=== PATIENT | male | born 1965 | race Caucasian/White ===

== ENCOUNTER → 2017-10-16 07:04 | Day surgery (SDC) | payer OTHER, SELFPAY ==
--- NOTE | 2017-10-16 | PATH_ITS ---
[facility] Accession Number: [id number] . 01 Material submitted: . PART A: POLYP ASCENDING COLON PART B: POLYP AT 35 . 02 Diagnosis: A. Biopsy Polyp Ascending Colon: Tubular adenoma involving all three biopsy fragments. . B. Biopsy Colon Polyp at 35 cm: Hyperplastic polyp. MRV/10/19/2017 . 02 Electronically signed: . Michael Smalls MD, Pathologist NPI- [id number] . 01 Gross description: . Received two formalin-filled containers, both labeled with the patient's name: . A. In a container labeled polyp, ascending colon, the specimen consists of three 0.1-0.3 cm portions of tissue, entirely submitted in cassette A. B. In a container labeled polyp at 35, the specimen consists of a 0.3 cm portion of tissue, entirely submitted in cassette B. ([id number]) /FRR . 02 Pathologist provided ICD-10: D12.2 . 02 CPT . 060424, [id number] Performed at: 01 [facility] [address], [place], [place] [id number] MD Prabhu Núñez MD Phone: [phone] Performed at: 02 [facility] [address] [place], [place] [id number] MD Americo Rodriguez MD Phone: [phone]
[2017-10-16 07:24] VITALS: BP 137/83; PULSE 65; RESP 16; TEMP 36.6; O2SAT 97; BMI 32.8
--- NOTE | 2017-10-16 07:41 | PM.HP.1 ---
History of Present Illness Date Patient Seen: 10/16/17 Time Patient Seen: 07:41 Chief complaint: [id number] COLONOSCOPY W/POSS BANDING Narrative: The patient is a gentleman who has intermittent blood per rectum and is here for colonoscopy and possible hemorrhoid banding Patient History Family & Social History Social History: household members spouse Meds Home Medications Medication Instructions Recorded Confirmed Type amoxicillin-pot clavulanate 875 mg PO BID #20 tab 04/11/17 10/16/17 Rx [Augmentin] neomycin-polymyxin B-dexameth 2 - 3 drp OP TID #5 ml 04/11/17 10/16/17 Rx Allergies Allergy/AdvReac Type Severity Reaction Status Date / Time No Known Drug Allergies Allergy Verified 10/16/17 07:16 Review of Systems Review of Systems All systems reviewed & are unremarkable except as noted in HPI and below Exam Vital Signs (past 8 hours): - 10/16/17 07:24 Temperature 97.9 F Pulse Rate 65 Respiratory Rate 16 Blood Pressure 137/83 H Pulse Oximetry 97 Oxygen Delivery Method Room Air Narrative Exam Narrative: Overweight gentleman in no apparent distress. Eyes are nonicteric. Lungs are clear to auscultation without rales or rhonchi. Heart regular rate and rhythm without murmur gallop. Abdomen is protuberant soft nontender without mass. Patient is alert and oriented x3. Assessment & Plan Plan: Assessment/Plan Narrative: Patient with intermittent rectal bleeding for colonoscopy and possible hemorrhoid banding. I have discussed the procedure and the rationale with the patient including risks of bleeding, perforation which would necessitate a major operation, failure to find remove all lesions and the potential to tattoo. They appeared to understand and wished to proceed.
--- NOTE | 2017-10-16 07:43 | PM.PREOP ---
Pre-operative Note Interval Note Pre-op Check: Yes History & Physical exam performed today by Physician Changes: No ASA Class (for procedural sedation): I
[2017-10-16] MEDS: SODIUM CHLORIDE 0.9% 1,000 ML 200 ML IV (07:45)
[2017-10-16] MEDS: MIDAZOLAM 5 MG/5 ML VIAL IV (08:11)
[2017-10-16] MEDS: fentaNYL 250 MCG/5 ML INJ IV (08:12)
[2017-10-16 08:23] VITALS: BP 123/82; PULSE 81; RESP 18; TEMP 37.2; O2SAT 96
--- NOTE | 2017-10-16 08:27 | P.OP.ENDO_ITS ---
Operative Date/Time/Diagnoses Date of procedure: 10/16/17 Time of procedure: 08:22 Pre-op diagnosis: Rectal bleeding. Screening exam at age 52. No prior colonoscopy. Post-op diagnosis: same (Ascending colon polyp near the flexure. Small hemorrhoids near the verge but not really amenable to banding.) Procedure & Clinicians Study performed: Colonoscopy with cold biopsy Same procedure as scheduled: Yes Indications: Rectal bleeding. Age 52. Surgeon: Stuart Mcmillan Procedure Notes SCOAP/Timeout: Performed Procedure in detail: The patient was placed in the left lateral decubitus position and underwent IV sedation directed by the surgeon consisting of fentanyl and Versed. Digital exam was unremarkable. Prostate was normal size. No masses felt. I could not feel the anterior part of the gland well.. The scope was inserted and advanced through the rectum into the sigmoid, descending , transverse, and ascending colon. No lesions were seen. The cecum was reached identified by the ileocecal valve and the appendiceal opening. The ileocecal valve was successfully cannulated. The terminal ileum was normal in appearance. The scope was gradually brought out. Polyps were found at the ascending colon near the flexure and at 35 cm. The ascending colon polyp was subcentimeter bit larger than the other which was quite small. The scope ultimately was retroflexed in the rectum. The appearance was remarkable for very small hemorrhoids with a little excoriation. I did not feel these were amenable to banding as they were right inside the anal verge and appeared to be of little consequence.. The scope was removed and the patient tolerated the procedure well Scope withdrawal time: 14 min Sedation minutes: 28 Findings: internal hemorrhoids (Very small right near the anal verge) and polyp (Ascending colon and 35 cm from the anal verge) Specimen(s): other (Polyps) Complications: none Recommendations: Colonscopy in 5 years Follow up: as needed Disposition: PACU
[2017-10-16 08:28] VITALS: BP 126/72; PULSE 70; RESP 16; TEMP 37.2; O2SAT 96
[2017-10-16 08:33] VITALS: BP 121/82; PULSE 73; RESP 20; TEMP 36.8; O2SAT 70
[2017-10-16 08:41] VITALS: BP 130/86; PULSE 68; RESP 16; TEMP 36.8; O2SAT 94
[2017-10-16 08:57] VITALS: BP 121/86; PULSE 62; RESP 18; TEMP 36.6; O2SAT 98
== END | disposition home or self-care (01) ==
PROVIDERS: PCP Internal Medicine; Visit Provider Specialist
PROC: 0DJD8ZZ Inspection of Lower Intestinal Tract, Via Natural or Artificial Opening Endoscopic (ICD-10-PCS; CPT 45378; principal; 2017-10-16 07:45)
DX: D12.2 Benign neoplasm of ascending colon (principal); K64.8 Other hemorrhoids
CPT/HCPCS: 45380; 99152; 99153; J2250; J3010

== ENCOUNTER → 2019-04-21 09:47 | Outpatient (CLI) | payer OTHER, SELFPAY ==
--- NOTE | 2019-04-21 | DI.RAD.S_ITS ---
PROCEDURE: XR THORACIC SPINE 3V INDICATIONS: LOW BACK PAIN TECHNIQUE: 3 views of the thoracic spine were acquired. COMPARISON: [facility], , XR LUMBAR SPINE 2-3V, 04/21/2019, 9:49. [facility], , THORACIC SPINE 3 VIEWS, 01/08/2015, 12:32. FINDINGS: Bones: Mild anterior wedging of the T12 vertebral body. Remaining vertebral body heights appear preserved Soft tissues: No paravertebral stripe thickening. IMPRESSION: Mild anterior wedging of the T12 vertebral body, new since 2014 however technically still age-indeterminate in the absence of more recent prior studies. Correlation with point tenderness and if necessary, dedicated MRI could be performed to assess for acute marrow edema. Findings were personally discussed by telephone with Dr. Piper on 04/21/19 Dictated by: Luis Morales M.D. on 04/21/2019 at 13:10 Approved by: Luis Morales M.D. on 04/21/2019 at 13:15
--- NOTE | 2019-04-21 | DI.RAD.S_ITS ---
PROCEDURE: XR LUMBAR SPINE 2-3V INDICATIONS: LOW BACK PAIN TECHNIQUE: 3 views of the lumbar spine were acquired. COMPARISON: [facility], , THORACIC SPINE 3 VIEWS, 01/08/2015, 12:32. [facility], , CHEST 2 VIEW, 07/24/2017, 15:40. [facility], , XR THORACIC SPINE 3V, 04/21/2019, 9:49. [facility], , L-SPINE 2-3 VIEWS, 01/08/2015, 12:32. FINDINGS: Bones: Mild anterior wedging of the T12 vertebral body. Lower lumbar spondylosis and diffuse facet arthropathy. Soft tissues: Overlying bowel gas pattern is normal. No suspicious soft tissue calcifications. IMPRESSION: Mild anterior wedging of the T12 vertebral body, new since although technically still age indeterminate in the absence of more recent prior studies. Recommend clinical correlation Dictated by: Luis Morales M.D. on 04/21/2019 at 13:08 Approved by: Luis Morales M.D. on 04/21/2019 at 13:10
== END ==
PROVIDERS: PCP Internal Medicine; Visit Provider Internal Medicine
DX: M54.5 Low back pain (principal); M48.54XA Collapsed vertebra, not elsewhere classified, thoracic region, initial encounter for fracture; M47.816 Spondylosis without myelopathy or radiculopathy, lumbar region
CPT/HCPCS: 72072; 72100

== ENCOUNTER 2020-04-26 12:15 | Outpatient (RCR) | payer OTHER, SELFPAY ==
--- NOTE | 2020-02-16 16:11 | PT.OPPOC ---
Physical, Occupational & Speech Therapy At [facility] Current Diagnoses Wedge compression fracture of T11-T12 vertebra, initial encounter for closed fracture (02/16/20) Visit Care Team Role Provider Type Sahil Piper MD Attending Provider Physician Primary Care Provider Referring Provider Specialty: Internal Medicine Address: [address] [place] [address], [facility] Email: [email or web address] Plan Of Care PT-OP-T Assessment and Plan Start: 02/15/20 07:21 Freq: Status: Active Protocol: Document 02/16/20 12:55 MB (Rec: 02/16/20 16:09 MB [id number]) Physical Therapy Assessment Rehab Potential Rehabilitation Potential Good Evaluation Complexity Number of Personal Factors/Comorbidities 1-2 Number of Body Systems Impaired 1-2 Clinical Presentation at Evaluation Stable Impairments Impairments Activity Tolerance,Balance, Functional Activities, Functional Mobility,Integument ,Pain,Posture,ROM,Soft Tissue Mobility,Strength Goals 4 Senior Living Goal (LTG) Pt will report an overall 75% improvement in pain to improve quality of life by 04/17/2020. LTG Duration 8 weeks 3 Core Cleaner Goal (LTG) Pt will present with improved B shoulder flexion and left hip flexion and abduction strength to 5/5 to improve functional strength by 2020. LTG Duration 8 weeks 2 Senior Living Goal (LTG) Pt will perform progressive HEP with I including postural, strengthening, flexibility, body mechanics, ergonomic, breathing and relaxation exercises to improve overall posture, pain and functional strength by 04/17/2020. LTG Duration 8 weeks 1 Senior Living Goal (LTG) Pt will present with improved Oswestry score to reflect no more than 20% impairment to improve functional activities by 04/17/2020. LTG Duration 8 weeks Assessment Summary Assessment Pt is a 54 y/o male presenting with compression fracture that is likely greater than 1 year old. 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 He is changing work shifts and occ works up to 7 days a week. He commutes 1 hour to work and 1 hour from work. Overall, his life has become more sedentary since his injury d/t the resulting pain, greatest with standing and walking greater than 10 minutes. Pt presents with postural changes, fascial changes, pelvic obliquities and weakness. He will benefit from PT for manual work, breathing exercises to improve rib and thoracic motility, other exercises including postural, flexibility and strengthening exercises. Barriers include work requirements and sedentary lifestyle. Pt is also a stomach sleeper and this may affect his cervical spine. Pt is very motivated to get better and would like to return to hiking and carrying a backpack. Physical Therapy Plan Frequency and Duration Frequency of Treatment 2x/Week Duration of Treatment 8 weeks Plan of Care Start Date 02/16/20 Plan of Care End Date 04/17/20 Therapeutic Interventions Therapeutic Interventions Balance Training,Canalithic Repositioning,Coordination Training,Home Exercise Program ,Joint Mobilizations,Manual Therapy,Neuromuscular Re- education,Patient/Caregiver Education,Self-Care/Home Management,Sensory Integration ,Soft Tissue Mobilization, Taping,Therapeutic Activities, Therapeutic Exercises Modalities Cold Pack/Ice Massage,Electric Stimulation,Hot Packs, Ultrasound Next Visit Focus/Plan Next Note Type Treatment Note Next Visit Plan Counterstrain and/or relaxation exercises Plan of Care Dates Plan of Care Start Date 02/16/20 Plan of Care End Date 04/17/20 Electronically Signed by: Karla Francios, PT 02/16/20 0041 Please Sign and Return: I have reviewed this Plan of Care and certify that the skilled therapy services above are required to meet the patient?s needs. Physician Signature Date Printed Name and Credentials Clinical Instructor Signature Printed Name and Credentials
--- NOTE | 2020-02-16 16:11 | PT.OIE ---
Current Diagnoses Wedge compression fracture of T11-T12 vertebra, initial encounter for closed fracture (02/16/20) Past Medical History (Last Updated 01/08/18 @ 09:45 by Gayle Collier, RN) Lipoma of anterior chest wall No significant past medical history Subcutaneous mass Past Surgical History (Last Updated 01/08/18 @ 09:47 by Gayle Collier, RN) History of colonoscopy Status post excision of lipoma Visit Care Team Role Provider Type Sahil Piper MD Attending Provider Physician Primary Care Provider Referring Provider Specialty: Internal Medicine Address: [address] [place] [address] Email: [email or web address] Physical Therapy Initial Evaluation PT-OP-A Visit Information Start: 02/15/20 07:21 Freq: Status: Active Protocol: Document 02/16/20 12:55 MB (Rec: 02/16/20 13:29 MB [id number]) Out-Patient Physical Therapy Visit Information Visit Information Visit Type Initial Evaluation Visit Note [employer], PT only Visit Start Time 12:55 Visit Stop Time 13:55 Total Visit Minutes 60 Visit Number 1 Evaluation Information Evaluation Date 02/16/20 PT-OP-B Current Condition Start: 02/15/20 07:21 Freq: Status: Active Protocol: Document 02/16/20 12:55 MB (Rec: 02/16/20 13:29 MB [id number]) Current Condition History of Current Condition Onset Date 02/11/2019 Current Complaints Inconsistent thoracic pain History of Current Condition On 02/11/2019, pt's right foot got stuck in a hole and he fell hard on his tailbone and back. 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 He had severe tailbone pain and back pain after the injury. He thinks he was in shock for a few days. He did not miss work . He finally went to the doctor in March and was found to have a T12 compression fracture. He no longer has tailbone pain but reports 8-10/10 lower thoracic -upper lumbar pain with being up on his feet standing or walking for 10 minutes. Pt reports a shooting pain. He also has dull and nausea pain. Pt drives 1 hour to work and 1 hour back from work 40-70 hours a week. Pt is concerned about weight gain. He works 3rd shift. He does not have pain with driving. He will be changing to 2nd shift. Pt states that he doesn't sleep well. He sleeps on his stomach. He has pain if he lies down more than 6-7 hours a night. He slept on a hard mattress on his back for a few weeks when he had a lot of pain. He also got into hip flexor relaxation position. 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 He does not think this is related to his back and thinks it is related to overuse. Pt has multiple cuts from work . Pt has history of headaches. Prior Treatments and Tests X-ray lumbar spine 04/21/2019: mild anterior wedging T12 new since 01/08/15 and age indeterminate and lumbar spondylosis and diffuse facet arthropathy Treatment Goals Patient/Caregiver Goals To lose weight and get back to exercising, walking and hiking. PT-OP-C Subjective Start: 02/15/20 07:21 Freq: Status: Active Protocol: Document 02/16/20 12:55 MB (Rec: 02/16/20 13:29 MB [id number]) OP-PT Subjective Patient Comments Patient Comments See history of current condition. Patient Questionnaires Oswestry Low Back Index Oswestry Score 23 Oswestry Impairment 40 to 59% Impaired (Score 40- 59) PT-OP-J Posture/Palpation/Skin Start: 02/15/20 07:21 Freq: Status: Active Protocol: Document 02/16/20 12:55 MB (Rec: 02/16/20 16:09 MB [id number]) Posture Evaluation Comments Posture Comments Standing posture: increased body mass, decreased cervical lordosis, Dowager's hump, some lipoma areas chest, left arm, back noted, increased lumbar lordosis, anterior tilt pelvis , pelvic obliquities with right iliac crest higher than the left and pt reporting tenderness to touch over left iliac crest that might be related to old lipoma removal. Tension and pain over left T12 vertebra and ribs compared to the right, pt wears Randall boots and has increased resting toe extension greater on the right foot and increased right Naya angle compared to the left. Pt reports unstable ankles, greater on the left and frequent rolling of his ankles. Range of spine with movements: decreased SB B with most movement at shoulders and decreased movement T12 area, forward flexion decreases with repetition and pt reports that he prefers extension positions. Sitting thoracic rotation with left rotation 25 % less than the right. PT-OP-K Range of Motion Start: 02/15/20 07:21 Freq: Status: Active Protocol: Document 02/16/20 12:55 MB (Rec: 02/16/20 16:09 MB [id number]) Shoulder Goniometric Range of Motion Shoulder B Shoulder ROM WFL Yes Testing Position Sitting Elbow/Forearm Range of Motion Elbow/Forearm B Elbow/Forearm ROM WFL Yes ROM Testing Position Sitting Comments Hypermobility into extension left elbow PT-OP-M Strength Start: 02/15/20 07:21 Freq: Status: Active Protocol: Document 02/16/20 12:55 MB (Rec: 02/16/20 16:09 MB [id number]) Shoulder Strength Shoulder Manual Muscle Testing Left Flexion 4 Good Abduction (C5) 5 Normal External Rotation 4 Good Internal Rotation 4 Good Right Flexion 4 Good Abduction (C5) 5 Normal External Rotation 5 Normal Internal Rotation 5 Normal Elbow/Forearm Strength Elbow and Forearm Manual Muscle Testing Left Flexion (C6) 5 Normal Extension (C7) 5 Normal Pronation 5 Normal Supination 5 Normal Right Flexion (C6) 5 Normal Extension (C7) 5 Normal Pronation 5 Normal Supination 5 Normal Hip Strength Hip Manual Muscle Testing Left Flexion (L2) 4 Good Abduction 4 Good Right Flexion (L2) 5 Normal Abduction 5 Normal Knee Strength Knee Manual Muscle Testing B Extension (L3) 5 Normal PT-OP-Q Treatments Start: 02/15/20 07:21 Freq: Status: Active Protocol: Document 02/16/20 12:55 MB (Rec: 02/16/20 16:10 MB [id number]) Self-Care/Home Management Treatment Education Other Education Possible benefits of Spinomed brace in setting of compresssion fracture and postural changes, benefits of Counterstrain and provided education handout, to set phone timer so that he gets up every 30 minutes at work to perform gentle standing extension with 5 rib breaths. PT-OP-T Assessment and Plan Start: 02/15/20 07:21 Freq: Status: Active Protocol: Document 02/16/20 12:55 MB (Rec: 02/16/20 16:09 MB [id number]) Physical Therapy Assessment Rehab Potential Rehabilitation Potential Good Evaluation Complexity Number of Personal Factors/Comorbidities 1-2 Number of Body Systems Impaired 1-2 Clinical Presentation at Evaluation Stable Impairments Impairments Activity Tolerance,Balance, Functional Activities, Functional Mobility,Integument ,Pain,Posture,ROM,Soft Tissue Mobility,Strength Goals 4 Half-Way Goal (LTG) Pt will report an overall 75% improvement in pain to improve quality of life by 04/17/2020. LTG Duration 8 weeks 3 Half-Way Goal (LTG) Pt will present with improved B shoulder flexion and left hip flexion and abduction strength to 5/5 to improve functional strength by 2020. LTG Duration 8 weeks 2 Marine Engineering Technicians Goal (LTG) Pt will perform progressive HEP with I including postural, strengthening, flexibility, body mechanics, ergonomic, breathing and relaxation exercises to improve overall posture, pain and functional strength by 04/17/2020. LTG Duration 8 weeks 1 Marine Engineering Technicians Goal (LTG) Pt will present with improved Oswestry score to reflect no more than 20% impairment to improve functional activities by 04/17/2020. LTG Duration 8 weeks Assessment Summary Assessment Pt is a 54 y/o male presenting with compression fracture that is likely greater than 1 year old. 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 He is changing work shifts and occ works up to 7 days a week. He commutes 1 hour to work and 1 hour from work. Overall, his life has become more sedentary since his injury d/t the resulting pain, greatest with standing and walking greater than 10 minutes. Pt presents with postural changes, fascial changes, pelvic obliquities and weakness. He will benefit from PT for manual work, breathing exercises to improve rib and thoracic motility, other exercises including postural, flexibility and strengthening exercises. Barriers include work requirements and sedentary lifestyle. Pt is also a stomach sleeper and this may affect his cervical spine. Pt is very motivated to get better and would like to return to hiking and carrying a backpack. Physical Therapy Plan Frequency and Duration Frequency of Treatment 2x/Week Duration of Treatment 8 weeks Plan of Care Start Date 02/16/20 Plan of Care End Date 04/17/20 Therapeutic Interventions Therapeutic Interventions Balance Training,Canalithic Repositioning,Coordination Training,Home Exercise Program ,Joint Mobilizations,Manual Therapy,Neuromuscular Re- education,Patient/Caregiver Education,Self-Care/Home Management,Sensory Integration ,Soft Tissue Mobilization, Taping,Therapeutic Activities, Therapeutic Exercises Modalities Cold Pack/Ice Massage,Electric Stimulation,Hot Packs, Ultrasound Next Visit Focus/Plan Next Note Type Treatment Note Next Visit Plan Counterstrain and/or relaxation exercises
--- NOTE | 2020-02-17 15:47 | PT.OTN ---
Current Diagnoses Wedge compression fracture of T11-T12 vertebra, initial encounter for closed fracture (02/17/20) Physical Therapy Treatment Note PT-OP-A Visit Information Start: 02/15/20 07:21 Freq: Status: Active Protocol: Document 02/17/20 13:45 MB (Rec: 02/17/20 14:34 MB [id number]) Out-Patient Physical Therapy Visit Information Visit Information Visit Type Treatment Note Visit Start Time 13:45 Visit Stop Time 14:30 Total Visit Minutes 45 Visit Number 2 PT-OP-B Current Condition Start: 02/15/20 07:21 Freq: Status: Active Protocol: Document 02/16/20 12:55 MB (Rec: 02/16/20 13:29 MB [id number]) Current Condition History of Current Condition Onset Date 02/11/2019 Current Complaints Inconsistent thoracic pain History of Current Condition On 02/11/2019, pt's right foot got stuck in a hole and he fell hard on his tailbone and back. He works in a fish [email or web address] and it has a a round bottom. 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 He had severe tailbone pain and back pain after the injury. He thinks he was in shock for a few days. He did not miss work . He finally went to the doctor in March and was found to have a T12 compression fracture. He no longer has tailbone pain but reports 8-10/10 lower thoracic -upper lumbar pain with being up on his feet standing or walking for 10 minutes. Pt reports a shooting pain. He also has dull and nausea pain. Pt drives 1 hour to work and 1 hour back from work 40-70 hours a week. Pt is concerned about weight gain. He works 3rd shift. He does not have pain with driving. He will be changing to 2nd shift. Pt states that he doesn't sleep well. He sleeps on his stomach. He has pain if he lies down more than 6-7 hours a night. He slept on a hard mattress on his back for a few weeks when he had a lot of pain. He also got into hip flexor relaxation position. 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 He does not think this is related to his back and thinks it is related to overuse. Pt has multiple cuts from work . Pt has history of headaches. Prior Treatments and Tests X-ray lumbar spine 04/21/2019: mild anterior wedging T12 new since 01/08/15 and age indeterminate and lumbar spondylosis and diffuse facet arthropathy Treatment Goals Patient/Caregiver Goals To lose weight and get back to exercising, walking and hiking. PT-OP-C Subjective Start: 02/15/20 07:21 Freq: Status: Active Protocol: Document 02/17/20 13:45 MB (Rec: 02/17/20 14:34 MB [id number]) OP-PT Subjective Patient Comments Patient Comments Where do you start when you have this? PT-OP-J Posture/Palpation/Skin Start: 02/15/20 07:21 Freq: Status: Active Protocol: Document 02/16/20 12:55 MB (Rec: 02/16/20 16:09 MB [id number]) Posture Evaluation Comments Posture Comments Standing posture: increased body mass, decreased cervical lordosis, Dowager's hump, some lipoma areas chest, left arm, back noted, increased lumbar lordosis, anterior tilt pelvis , pelvic obliquities with right iliac crest higher than the left and pt reporting tenderness to touch over left iliac crest that might be related to old lipoma removal. Tension and pain over left T12 vertebra and ribs compared to the right, pt wears Randall boots and has increased resting toe extension greater on the right foot and increased right Naya angle compared to the left. Pt reports unstable ankles, greater on the left and frequent rolling of his ankles. Range of spine with movements: decreased SB B with most movement at shoulders and decreased movement T12 area, forward flexion decreases with repetition and pt reports that he prefers extension positions. Sitting thoracic rotation with left rotation 25 % less than the right. PT-OP-K Range of Motion Start: 02/15/20 07:21 Freq: Status: Active Protocol: Document 02/16/20 12:55 MB (Rec: 02/16/20 16:09 MB [id number]) Shoulder Goniometric Range of Motion Shoulder B Shoulder ROM WFL Yes Testing Position Sitting Elbow/Forearm Range of Motion Elbow/Forearm B Elbow/Forearm ROM WFL Yes ROM Testing Position Sitting Comments Hypermobility into extension left elbow PT-OP-M Strength Start: 02/15/20 07:21 Freq: Status: Active Protocol: Document 02/16/20 12:55 MB (Rec: 02/16/20 16:09 MB [id number]) Shoulder Strength Shoulder Manual Muscle Testing Left Flexion 4 Good Abduction (C5) 5 Normal External Rotation 4 Good Internal Rotation 4 Good Right Flexion 4 Good Abduction (C5) 5 Normal External Rotation 5 Normal Internal Rotation 5 Normal Elbow/Forearm Strength Elbow and Forearm Manual Muscle Testing Left Flexion (C6) 5 Normal Extension (C7) 5 Normal Pronation 5 Normal Supination 5 Normal Right Flexion (C6) 5 Normal Extension (C7) 5 Normal Pronation 5 Normal Supination 5 Normal Hip Strength Hip Manual Muscle Testing Left Flexion (L2) 4 Good Abduction 4 Good Right Flexion (L2) 5 Normal Abduction 5 Normal Knee Strength Knee Manual Muscle Testing B Extension (L3) 5 Normal PT-OP-Q Treatments Start: 02/15/20 07:21 Freq: Status: Active Protocol: Document 02/17/20 13:45 MB (Rec: 02/17/20 14:34 MB [id number]) Therapeutic Exercises Supine Exercises Diaphragm breathing Comments 5 reps slowly with legs up on therapy ball and band holding legs from falli Manual Therapy Treatment Other Other Manual Treatments Pt agrees to Counterstrain to assess and treat fascial tension and pt presents with tension in the following fascial systems: right trigeminal, right anterior LE somatic, right visceral and costocartilage. When PT starts to treat the most tight area, the right trigeminal fascia supraorbital area, pt grimaces and talks about history of migraines with retro-orbital HAs and also reports history of falls, hitting his right maxilla and ongoing intermittent tooth pain when has pain anywhere else in body . PT moves off the face and performs suboccipital release and very gentle superficial fascia upper diaphragm area positional release and pt reports feeling better. Self-Care/Home Management Treatment Education Other Education Benefits of therapy ball for sitting and positioning with legs up, to consider purchasing 55 cm ball and clinic can inflate it, progression to leaning over the ball, need for head and neck support when lying in hook lying, importance of breathing, benefits of using the band that PT gives him to tie legs together to relax them when up. PT-OP-T Assessment and Plan Start: 02/15/20 07:21 Freq: Status: Active Protocol: Document 02/17/20 13:45 MB (Rec: 02/17/20 14:34 MB [id number]) Physical Therapy Assessment Rehab Potential Rehabilitation Potential Good Evaluation Complexity Number of Personal Factors/Comorbidities 1-2 Number of Body Systems Impaired 1-2 Clinical Presentation at Evaluation Stable Impairments Impairments Activity Tolerance,Balance, Functional Activities, Functional Mobility,Integument ,Pain,Posture,ROM,Soft Tissue Mobility,Strength Goals 4 Compressor Repairer Goal (LTG) Pt will report an overall 75% improvement in pain to improve quality of life by 04/17/2020. LTG Duration 8 weeks 3 Residential Goal (LTG) Pt will present with improved B shoulder flexion and left hip flexion and abduction strength to 5/5 to improve functional strength by 2020. LTG Duration 8 weeks 2 Residential Goal (LTG) Pt will perform progressive HEP with I including postural, strengthening, flexibility, body mechanics, ergonomic, breathing and relaxation exercises to improve overall posture, pain and functional strength by 04/17/2020. LTG Duration 8 weeks 1 Residential Goal (LTG) Pt will present with improved Oswestry score to reflect no more than 20% impairment to improve functional activities by 04/17/2020. LTG Duration 8 weeks Assessment Summary Assessment Initiated positioning and Counterstrain today and pt is very symptomatic to gentle palpation and touch to his face. His right frontal and maxilla areas are very tight compared to the left. Pt reports history of facial trauma, migraines and tooth pain. He reports increased salivation with PT palpating right maxilla area for trigeminal fascial point and these may be a trigeminal response. Con't gentle progression of exercises, positioning and manual work. Pt does tolerate hook lying with legs on 55 cm ball today for manual work with head and neck supported. Physical Therapy Plan Frequency and Duration Frequency of Treatment 2x/Week Duration of Treatment 8 weeks Plan of Care Start Date 02/16/20 Plan of Care End Date 04/17/20 Therapeutic Interventions Therapeutic Interventions Balance Training,Canalithic Repositioning,Coordination Training,Home Exercise Program ,Joint Mobilizations,Manual Therapy,Neuromuscular Re- education,Patient/Caregiver Education,Self-Care/Home Management,Sensory Integration ,Soft Tissue Mobilization, Taping,Therapeutic Activities, Therapeutic Exercises Modalities Cold Pack/Ice Massage,Electric Stimulation,Hot Packs, Ultrasound Next Visit Focus/Plan Next Note Type Treatment Note Next Visit Plan Progress Counterstrain and/or relaxation exercises including over the ball
--- NOTE | 2020-02-21 13:56 | PT.OTN ---
Current Diagnoses Wedge compression fracture of T11-T12 vertebra, initial encounter for closed fracture (02/21/20) Physical Therapy Treatment Note PT-OP-A Visit Information Start: 02/15/20 07:21 Freq: Status: Active Protocol: Document 02/21/20 13:02 MB (Rec: 02/21/20 13:56 MB [id number]) Out-Patient Physical Therapy Visit Information Visit Information Visit Type Treatment Note Visit Start Time 13:02 Visit Stop Time 13:45 Total Visit Minutes 43 Visit Number 3 PT-OP-B Current Condition Start: 02/15/20 07:21 Freq: Status: Active Protocol: Document 02/16/20 12:55 MB (Rec: 02/16/20 13:29 MB [id number]) Current Condition History of Current Condition Onset Date 02/11/2019 Current Complaints Inconsistent thoracic pain History of Current Condition On 02/11/2019, pt's right foot got stuck in a hole and he fell hard on his tailbone and back. 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 He had severe tailbone pain and back pain after the injury. He thinks he was in shock for a few days. He did not miss work . He finally went to the doctor in March and was found to have a T12 compression fracture. He no longer has tailbone pain but reports 8-10/10 lower thoracic -upper lumbar pain with being up on his feet standing or walking for 10 minutes. Pt reports a shooting pain. He also has dull and nausea pain. Pt drives 1 hour to work and 1 hour back from work 40-70 hours a week. Pt is concerned about weight gain. He works 3rd shift. He does not have pain with driving. He will be changing to 2nd shift. Pt states that he doesn't sleep well. He sleeps on his stomach. He has pain if he lies down more than 6-7 hours a night. He slept on a hard mattress on his back for a few weeks when he had a lot of pain. He also got into hip flexor relaxation position. 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 He does not think this is related to his back and thinks it is related to overuse. Pt has multiple cuts from work . Pt has history of headaches. Prior Treatments and Tests X-ray lumbar spine 04/21/2019: mild anterior wedging T12 new since 01/08/15 and age indeterminate and lumbar spondylosis and diffuse facet arthropathy Treatment Goals Patient/Caregiver Goals To lose weight and get back to exercising, walking and hiking. PT-OP-C Subjective Start: 02/15/20 07:21 Freq: Status: Active Protocol: Document 02/21/20 13:02 MB (Rec: 02/21/20 13:56 MB [id number]) OP-PT Subjective Patient Comments Patient Comments I felt wiped out after treatment. I felt like I had a six month setback for three days and then I felt better. Pt had a few moments of finger tip and toe numbness left fingers. PT-OP-J Posture/Palpation/Skin Start: 02/15/20 07:21 Freq: Status: Active Protocol: Document 02/16/20 12:55 MB (Rec: 02/16/20 16:09 MB [id number]) Posture Evaluation Comments Posture Comments Standing posture: increased body mass, decreased cervical lordosis, Dowager's hump, some lipoma areas chest, left arm, back noted, increased lumbar lordosis, anterior tilt pelvis , pelvic obliquities with right iliac crest higher than the left and pt reporting tenderness to touch over left iliac crest that might be related to old lipoma removal. Tension and pain over left T12 vertebra and ribs compared to the right, pt wears Randall boots and has increased resting toe extension greater on the right foot and increased right Naya angle compared to the left. Pt reports unstable ankles, greater on the left and frequent rolling of his ankles. Range of spine with movements: decreased SB B with most movement at shoulders and decreased movement T12 area, forward flexion decreases with repetition and pt reports that he prefers extension positions. Sitting thoracic rotation with left rotation 25 % less than the right. PT-OP-K Range of Motion Start: 02/15/20 07:21 Freq: Status: Active Protocol: Document 02/16/20 12:55 MB (Rec: 02/16/20 16:09 MB [id number]) Shoulder Goniometric Range of Motion Shoulder B Shoulder ROM WFL Yes Testing Position Sitting Elbow/Forearm Range of Motion Elbow/Forearm B Elbow/Forearm ROM WFL Yes ROM Testing Position Sitting Comments Hypermobility into extension left elbow PT-OP-M Strength Start: 02/15/20 07:21 Freq: Status: Active Protocol: Document 02/16/20 12:55 MB (Rec: 02/16/20 16:09 MB [id number]) Shoulder Strength Shoulder Manual Muscle Testing Left Flexion 4 Good Abduction (C5) 5 Normal External Rotation 4 Good Internal Rotation 4 Good Right Flexion 4 Good Abduction (C5) 5 Normal External Rotation 5 Normal Internal Rotation 5 Normal Elbow/Forearm Strength Elbow and Forearm Manual Muscle Testing Left Flexion (C6) 5 Normal Extension (C7) 5 Normal Pronation 5 Normal Supination 5 Normal Right Flexion (C6) 5 Normal Extension (C7) 5 Normal Pronation 5 Normal Supination 5 Normal Hip Strength Hip Manual Muscle Testing Left Flexion (L2) 4 Good Abduction 4 Good Right Flexion (L2) 5 Normal Abduction 5 Normal Knee Strength Knee Manual Muscle Testing B Extension (L3) 5 Normal PT-OP-Q Treatments Start: 02/15/20 07:21 Freq: Status: Active Protocol: Document 02/21/20 13:02 MB (Rec: 02/21/20 13:56 MB [id number]) Gym Equipment Therapeutic Ball Hip flexor relaxation Exercise Details Progression Ball Size/Color 65 cm ball, green, feet on wall Body Position Hooklying Comments Resting position and this position for starting exercises: diaphragm breathing , abdominal drawing in, B shoulder flexion with hiking stick with abdominal drawing in, gentle lumbar rotation, lumbar rotation with legs on ball to initiate log rolling to right and then sitting with back against the wall before coming to standing PT-OP-T Assessment and Plan Start: 02/15/20 07:21 Freq: Status: Active Protocol: Document 02/21/20 13:02 MB (Rec: 02/21/20 13:56 MB [id number]) Physical Therapy Assessment Rehab Potential Rehabilitation Potential Good Evaluation Complexity Number of Personal Factors/Comorbidities 1-2 Number of Body Systems Impaired 1-2 Clinical Presentation at Evaluation Stable Impairments Impairments Activity Tolerance,Balance, Functional Activities, Functional Mobility,Integument ,Pain,Posture,ROM,Soft Tissue Mobility,Strength Goals 4 Atg Architect Goal (LTG) Pt will report an overall 75% improvement in pain to improve quality of life by 04/17/2020. LTG Duration 8 weeks 3 Atg Architect Goal (LTG) Pt will present with improved B shoulder flexion and left hip flexion and abduction strength to 5/5 to improve functional strength by 2020. LTG Duration 8 weeks 2 Usp Goal (LTG) Pt will perform progressive HEP with I including postural, strengthening, flexibility, body mechanics, ergonomic, breathing and relaxation exercises to improve overall posture, pain and functional strength by 04/17/2020. LTG Duration 8 weeks 1 Atg Architect Goal (LTG) Pt will present with improved Oswestry score to reflect no more than 20% impairment to improve functional activities by 04/17/2020. LTG Duration 8 weeks Assessment Summary Assessment Pt likes 65 cm ball better for legs up on it for relaxation and progressive exercises and so will get one for home. Progressed hook lying exercises with legs up on ball and ball against the wall. Con't progression and work back to Counterstrain in the future. His trigeminal nerve reaction to palpation last treatment note provoked old migraine-type symptoms. Physical Therapy Plan Frequency and Duration Frequency of Treatment 2x/Week Duration of Treatment 8 weeks Plan of Care Start Date 02/16/20 Plan of Care End Date 04/17/20 Therapeutic Interventions Therapeutic Interventions Balance Training,Canalithic Repositioning,Coordination Training,Home Exercise Program ,Joint Mobilizations,Manual Therapy,Neuromuscular Re- education,Patient/Caregiver Education,Self-Care/Home Management,Sensory Integration ,Soft Tissue Mobilization, Taping,Therapeutic Activities, Therapeutic Exercises Modalities Cold Pack/Ice Massage,Electric Stimulation,Hot Packs, Ultrasound Next Visit Focus/Plan Next Note Type Treatment Note Next Visit Plan Progress thoracic activities with legs supported, core and breathing--shoulder movement in supported position
--- NOTE | 2020-03-02 13:52 | PT.OTN ---
Current Diagnoses Wedge compression fracture of T11-T12 vertebra, initial encounter for closed fracture (03/02/20) Physical Therapy Treatment Note PT-OP-A Visit Information Start: 02/15/20 07:21 Freq: Status: Active Protocol: Document 03/02/20 13:03 SP (Rec: 03/02/20 15:23 SP [id number]) Out-Patient Physical Therapy Visit Information Visit Information Visit Type Treatment Note Visit Start Time 13:03 Visit Stop Time 13:52 Total Visit Minutes 49 Visit Number 4 Number of DERMATOLOGY PROCEDURAL PHYSICIAN Visits 1 PT-OP-B Current Condition Start: 02/15/20 07:21 Freq: Status: Active Protocol: Document 02/16/20 12:55 MB (Rec: 02/16/20 13:29 MB [id number]) Current Condition History of Current Condition Onset Date 02/11/2019 Current Complaints Inconsistent thoracic pain History of Current Condition On 02/11/2019, pt's right foot got stuck in a hole and he fell hard on his tailbone and back. 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 He had severe tailbone pain and back pain after the injury. He thinks he was in shock for a few days. He did not miss work . He finally went to the doctor in March and was found to have a T12 compression fracture. He no longer has tailbone pain but reports 8-10/10 lower thoracic -upper lumbar pain with being up on his feet standing or walking for 10 minutes. Pt reports a shooting pain. He also has dull and nausea pain. Pt drives 1 hour to work and 1 hour back from work 40-70 hours a week. Pt is concerned about weight gain. He works 3rd shift. He does not have pain with driving. He will be changing to 2nd shift. Pt states that he doesn't sleep well. He sleeps on his stomach. He has pain if he lies down more than 6-7 hours a night. He slept on a hard mattress on his back for a few weeks when he had a lot of pain. He also got into hip flexor relaxation position. 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 He does not think this is related to his back and thinks it is related to overuse. Pt has multiple cuts from work . Pt has history of headaches. Prior Treatments and Tests X-ray lumbar spine 04/21/2019: mild anterior wedging T12 new since 01/08/15 and age indeterminate and lumbar spondylosis and diffuse facet arthropathy Treatment Goals Patient/Caregiver Goals To lose weight and get back to exercising, walking and hiking. PT-OP-C Subjective Start: 02/15/20 07:21 Freq: Status: Active Protocol: Document 03/02/20 13:03 SP (Rec: 03/02/20 15:23 SP [id number]) OP-PT Subjective Patient Comments Patient Comments Pt stated supine BLE over new couch while on floor to assimulate LE over ball in therapy and fell asleep very comforting during HEP review but stiff when woke up but anther time was discomfort positioning. Did find back to wall with UE elevated was good back positioning comfort. Also noted when standing> walking around house L ball of foot 2-4 MTP seems to go little numb/tingling but goes a way if don shoes, unsure why but wearing shoes helps. PT-OP-J Posture/Palpation/Skin Start: 02/15/20 07:21 Freq: Status: Active Protocol: Document 02/16/20 12:55 MB (Rec: 02/16/20 16:09 MB [id number]) Posture Evaluation Comments Posture Comments Standing posture: increased body mass, decreased cervical lordosis, Dowager's hump, some lipoma areas chest, left arm, back noted, increased lumbar lordosis, anterior tilt pelvis , pelvic obliquities with right iliac crest higher than the left and pt reporting tenderness to touch over left iliac crest that might be related to old lipoma removal. Tension and pain over left T12 vertebra and ribs compared to the right, pt wears Randall boots and has increased resting toe extension greater on the right foot and increased right Naya angle compared to the left. Pt reports unstable ankles, greater on the left and frequent rolling of his ankles. Range of spine with movements: decreased SB B with most movement at shoulders and decreased movement T12 area, forward flexion decreases with repetition and pt reports that he prefers extension positions. Sitting thoracic rotation with left rotation 25 % less than the right. PT-OP-K Range of Motion Start: 02/15/20 07:21 Freq: Status: Active Protocol: Document 02/16/20 12:55 MB (Rec: 02/16/20 16:09 MB [id number]) Shoulder Goniometric Range of Motion Shoulder B Shoulder ROM WFL Yes Testing Position Sitting Elbow/Forearm Range of Motion Elbow/Forearm B Elbow/Forearm ROM WFL Yes ROM Testing Position Sitting Comments Hypermobility into extension left elbow PT-OP-M Strength Start: 02/15/20 07:21 Freq: Status: Active Protocol: Document 02/16/20 12:55 MB (Rec: 02/16/20 16:09 MB [id number]) Shoulder Strength Shoulder Manual Muscle Testing Left Flexion 4 Good Abduction (C5) 5 Normal External Rotation 4 Good Internal Rotation 4 Good Right Flexion 4 Good Abduction (C5) 5 Normal External Rotation 5 Normal Internal Rotation 5 Normal Elbow/Forearm Strength Elbow and Forearm Manual Muscle Testing Left Flexion (C6) 5 Normal Extension (C7) 5 Normal Pronation 5 Normal Supination 5 Normal Right Flexion (C6) 5 Normal Extension (C7) 5 Normal Pronation 5 Normal Supination 5 Normal Hip Strength Hip Manual Muscle Testing Left Flexion (L2) 4 Good Abduction 4 Good Right Flexion (L2) 5 Normal Abduction 5 Normal Knee Strength Knee Manual Muscle Testing B Extension (L3) 5 Normal PT-OP-Q Treatments Start: 02/15/20 07:21 Freq: Status: Active Protocol: Document 03/02/20 13:03 SP (Rec: 03/02/20 15:23 SP [id number]) Therapeutic Exercises Supine Exercises Buteyko breathing Supine Exercise Name 1, 2, 3 Reps/Minutes 5 rep in 5 min each Comments cued for proper performance Diaphragm breathing Equipment Used 65cm BLE over ball Comments 5 reps slowly with legs up on therapy ball, pillow opp side ball stabilize. Standing Exercises racquetball rolling back at wall Standing Exercise Name ES, paraspinals lower thoracit /upper lumbar Side left Reps/Minutes 1 min Manual Therapy Treatment Soft Tissue Mobilization L ES, intercostal Body Location STMs and MWM incorp breath approx L ribcage T10 region Mobilization Type Strumming,Sustained Pressure, Other Intensity/Depth Moderate Body Position Prone Comments pillow under pelvis, chest for comfort positioning Pt unsure helped with tightness/ discomfort. PT-OP-T Assessment and Plan Start: 02/15/20 07:21 Freq: Status: Active Protocol: Document 03/02/20 13:03 SP (Rec: 03/02/20 15:23 SP [id number]) Physical Therapy Assessment Goals 4 Shelter Goal (LTG) Pt will report an overall 75% improvement in pain to improve quality of life by 04/17/2020. LTG Duration 8 weeks 3 Intellectual Property Counsel Goal (LTG) Pt will present with improved B shoulder flexion and left hip flexion and abduction strength to 5/5 to improve functional strength by 2020. LTG Duration 8 weeks 2 Shelter Goal (LTG) Pt will perform progressive HEP with I including postural, strengthening, flexibility, body mechanics, ergonomic, breathing and relaxation exercises to improve overall posture, pain and functional strength by 04/17/2020. LTG Duration 8 weeks 1 Intellectual Property Counsel Goal (LTG) Pt will present with improved Oswestry score to reflect no more than 20% impairment to improve functional activities by 04/17/2020. LTG Duration 8 weeks Assessment Summary Assessment Pt reported improvement in tightness L mid to low back end of tx post initiated buteyko breathing exercises and self racqetball rdolling at wall initiated today. Physical Therapy Plan Frequency and Duration Frequency of Treatment 2x/Week Duration of Treatment 8 weeks Plan of Care Start Date 02/16/20 Plan of Care End Date 04/17/20 Therapeutic Interventions Therapeutic Interventions Balance Training,Canalithic Repositioning,Coordination Training,Home Exercise Program ,Joint Mobilizations,Manual Therapy,Neuromuscular Re- education,Patient/Caregiver Education,Self-Care/Home Management,Sensory Integration ,Soft Tissue Mobilization, Taping,Therapeutic Activities, Therapeutic Exercises Modalities Cold Pack/Ice Massage,Electric Stimulation,Hot Packs, Ultrasound Next Visit Focus/Plan Next Note Type Treatment Note Next Visit Plan Assess response to last addition of buteyko breathing ex and self racquetball STMs at wall. Continue per PT POC: Progress next tx thoracic activities with legs supported , core and breathing--shoulder movement in supported position
--- NOTE | 2020-03-06 13:40 | PT.OTN ---
Current Diagnoses Wedge compression fracture of T11-T12 vertebra, initial encounter for closed fracture (03/06/20) Physical Therapy Treatment Note PT-OP-A Visit Information Start: 02/15/20 07:21 Freq: Status: Active Protocol: Document 03/06/20 13:01 MB (Rec: 03/06/20 13:39 MB [id number]) Out-Patient Physical Therapy Visit Information Visit Information Visit Type Treatment Note Visit Start Time 13:01 Visit Stop Time 13:40 Total Visit Minutes 39 Visit Number 5 PT-OP-B Current Condition Start: 02/15/20 07:21 Freq: Status: Active Protocol: Document 02/16/20 12:55 MB (Rec: 02/16/20 13:29 MB [id number]) Current Condition History of Current Condition Onset Date 02/11/2019 Current Complaints Inconsistent thoracic pain History of Current Condition On 02/11/2019, pt's right foot got stuck in a hole and he fell hard on his tailbone and back. 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 He had severe tailbone pain and back pain after the injury. He thinks he was in shock for a few days. He did not miss work . He finally went to the doctor in March and was found to have a T12 compression fracture. He no longer has tailbone pain but reports 8-10/10 lower thoracic -upper lumbar pain with being up on his feet standing or walking for 10 minutes. Pt reports a shooting pain. He also has dull and nausea pain. Pt drives 1 hour to work and 1 hour back from work 40-70 hours a week. Pt is concerned about weight gain. He works 3rd shift. He does not have pain with driving. He will be changing to 2nd shift. Pt states that he doesn't sleep well. He sleeps on his stomach. He has pain if he lies down more than 6-7 hours a night. He slept on a hard mattress on his back for a few weeks when he had a lot of pain. He also got into hip flexor relaxation position. 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 He does not think this is related to his back and thinks it is related to overuse. Pt has multiple cuts from work . Pt has history of headaches. Prior Treatments and Tests X-ray lumbar spine 04/21/2019: mild anterior wedging T12 new since 01/08/15 and age indeterminate and lumbar spondylosis and diffuse facet arthropathy Treatment Goals Patient/Caregiver Goals To lose weight and get back to exercising, walking and hiking. PT-OP-C Subjective Start: 02/15/20 07:21 Freq: Status: Active Protocol: Document 03/06/20 13:01 MB (Rec: 03/06/20 13:39 MB [id number]) OP-PT Subjective Patient Comments Patient Comments I just didn't feel well one day. Pt states that he is feeling better. Pt states that he has been putting his legs up on the couch and not the therapy ball. PT-OP-J Posture/Palpation/Skin Start: 02/15/20 07:21 Freq: Status: Active Protocol: Document 02/16/20 12:55 MB (Rec: 02/16/20 16:09 MB [id number]) Posture Evaluation Comments Posture Comments Standing posture: increased body mass, decreased cervical lordosis, Dowager's hump, some lipoma areas chest, left arm, back noted, increased lumbar lordosis, anterior tilt pelvis , pelvic obliquities with right iliac crest higher than the left and pt reporting tenderness to touch over left iliac crest that might be related to old lipoma removal. Tension and pain over left T12 vertebra and ribs compared to the right, pt wears Randall boots and has increased resting toe extension greater on the right foot and increased right Naya angle compared to the left. Pt reports unstable ankles, greater on the left and frequent rolling of his ankles. Range of spine with movements: decreased SB B with most movement at shoulders and decreased movement T12 area, forward flexion decreases with repetition and pt reports that he prefers extension positions. Sitting thoracic rotation with left rotation 25 % less than the right. PT-OP-K Range of Motion Start: 02/15/20 07:21 Freq: Status: Active Protocol: Document 02/16/20 12:55 MB (Rec: 02/16/20 16:09 MB [id number]) Shoulder Goniometric Range of Motion Shoulder B Shoulder ROM WFL Yes Testing Position Sitting Elbow/Forearm Range of Motion Elbow/Forearm B Elbow/Forearm ROM WFL Yes ROM Testing Position Sitting Comments Hypermobility into extension left elbow PT-OP-M Strength Start: 02/15/20 07:21 Freq: Status: Active Protocol: Document 02/16/20 12:55 MB (Rec: 02/16/20 16:09 MB [id number]) Shoulder Strength Shoulder Manual Muscle Testing Left Flexion 4 Good Abduction (C5) 5 Normal External Rotation 4 Good Internal Rotation 4 Good Right Flexion 4 Good Abduction (C5) 5 Normal External Rotation 5 Normal Internal Rotation 5 Normal Elbow/Forearm Strength Elbow and Forearm Manual Muscle Testing Left Flexion (C6) 5 Normal Extension (C7) 5 Normal Pronation 5 Normal Supination 5 Normal Right Flexion (C6) 5 Normal Extension (C7) 5 Normal Pronation 5 Normal Supination 5 Normal Hip Strength Hip Manual Muscle Testing Left Flexion (L2) 4 Good Abduction 4 Good Right Flexion (L2) 5 Normal Abduction 5 Normal Knee Strength Knee Manual Muscle Testing B Extension (L3) 5 Normal PT-OP-Q Treatments Start: 02/15/20 07:21 Freq: Status: Active Protocol: Document 03/06/20 13:01 MB (Rec: 03/06/20 13:39 MB [id number]) Gym Equipment Therapeutic Ball Hip flexor relaxation Ball Size/Color 65 cm ball, green Body Position Hooklying Comments 5 reps active shoulder flexion B, diaphragm breathing, pect stretch with diaphragm breathing Therapeutic Exercises Supine Exercises Buteyko breathing Supine Exercise Name 1: 15 sec hold, sats 98%, HR 70 BPM x2, 2: 7 sec, 10 sec 3: 15 sec x2 Equipment Used 65 cm ball Comments RA: sats 96%, HR 73 BPM before treatment Diaphragm breathing Equipment Used 65 cm ball Comments Pt performs today Standing Exercises racquetball rolling back at wall Side bilateral Comments Intrascapular muscles, cervical rotation, glutes/hip rotators PT-OP-T Assessment and Plan Start: 02/15/20 07:21 Freq: Status: Active Protocol: Document 03/06/20 13:01 MB (Rec: 03/06/20 13:39 MB [id number]) Physical Therapy Assessment Rehab Potential Rehabilitation Potential Good Evaluation Complexity Number of Personal Factors/Comorbidities 1-2 Number of Body Systems Impaired 1-2 Clinical Presentation at Evaluation Stable Impairments Impairments Activity Tolerance,Balance, Functional Activities, Functional Mobility,Integument ,Pain,Posture,ROM,Soft Tissue Mobility,Strength Goals 4 [facility]ci Goal (LTG) Pt will report an overall 75% improvement in pain to improve quality of life by 04/17/2020. LTG Duration 8 weeks 3 [facility]ci Goal (LTG) Pt will present with improved B shoulder flexion and left hip flexion and abduction strength to 5/5 to improve functional strength by 2020. LTG Duration 8 weeks 2 [facility]ci Goal (LTG) Pt will perform progressive HEP with I including postural, strengthening, flexibility, body mechanics, ergonomic, breathing and relaxation exercises to improve overall posture, pain and functional strength by 04/17/2020. LTG Duration 8 weeks 1 Fci Goal (LTG) Pt will present with improved Oswestry score to reflect no more than 20% impairment to improve functional activities by 04/17/2020. LTG Duration 8 weeks Assessment Summary Assessment HEP progression today included pect stretch in hook lying and use of racquet ball for intrascapular area. Con't progression with strengthening UEs in hook lying with legs over ball/couch. Con't manual work. Physical Therapy Plan Frequency and Duration Frequency of Treatment 2x/Week Duration of Treatment 8 weeks Plan of Care Start Date 02/16/20 Plan of Care End Date 04/17/20 Therapeutic Interventions Therapeutic Interventions Balance Training,Canalithic Repositioning,Coordination Training,Home Exercise Program ,Joint Mobilizations,Manual Therapy,Neuromuscular Re- education,Patient/Caregiver Education,Self-Care/Home Management,Sensory Integration ,Soft Tissue Mobilization, Taping,Therapeutic Activities, Therapeutic Exercises Modalities Cold Pack/Ice Massage,Electric Stimulation,Hot Packs, Ultrasound Next Visit Focus/Plan Next Note Type Treatment Note Next Visit Plan Progress core and shoulder strengthening in hook lying with legs up on ball/couch. Con't manual work.
--- NOTE | 2020-03-06 14:02 | PT.OTN ---
Current Diagnoses Wedge compression fracture of T11-T12 vertebra, initial encounter for closed fracture (03/06/20) Physical Therapy Treatment Note PT-OP-A Visit Information Start: 02/15/20 07:21 Freq: Status: Active Protocol: Document 03/06/20 13:01 MB (Rec: 03/06/20 13:39 MB [id number]) Out-Patient Physical Therapy Visit Information Visit Information Visit Type Treatment Note Visit Start Time 13:01 Visit Stop Time 13:59 Total Visit Minutes 58 Visit Number 5 PT-OP-B Current Condition Start: 02/15/20 07:21 Freq: Status: Active Protocol: Document 02/16/20 12:55 MB (Rec: 02/16/20 13:29 MB [id number]) Current Condition History of Current Condition Onset Date 02/11/2019 Current Complaints Inconsistent thoracic pain History of Current Condition On 02/11/2019, pt's right foot got stuck in a hole and he fell hard on his tailbone and back. He works in a [employer] and it has a a round bottom. 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 He had severe tailbone pain and back pain after the injury. He thinks he was in shock for a few days. He did not miss work . He finally went to the doctor in March and was found to have a T12 compression fracture. He no longer has tailbone pain but reports 8-10/10 lower thoracic -upper lumbar pain with being up on his feet standing or walking for 10 minutes. Pt reports a shooting pain. He also has dull and nausea pain. Pt drives 1 hour to work and 1 hour back from work 40-70 hours a week. Pt is concerned about weight gain. He works 3rd shift. He does not have pain with driving. He will be changing to 2nd shift. Pt states that he doesn't sleep well. He sleeps on his stomach. He has pain if he lies down more than 6-7 hours a night. He slept on a hard mattress on his back for a few weeks when he had a lot of pain. He also got into hip flexor relaxation position. 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 He has occ weak picture enlarger once a month and this has been going on for 10 years. He does not think this is related to his back and thinks it is related to overuse. Pt has multiple cuts from work . Pt has history of headaches. Prior Treatments and Tests X-ray lumbar spine 04/21/2019: mild anterior wedging T12 new since 01/08/15 and age indeterminate and lumbar spondylosis and diffuse facet arthropathy Treatment Goals Patient/Caregiver Goals To lose weight and get back to exercising, walking and hiking. PT-OP-C Subjective Start: 02/15/20 07:21 Freq: Status: Active Protocol: Document 03/06/20 13:01 MB (Rec: 03/06/20 13:39 MB [id number]) OP-PT Subjective Patient Comments Patient Comments I just didn't feel well one day. Pt states that he is feeling better. Pt states that he has been putting his legs up on the couch and not the therapy ball. PT-OP-J Posture/Palpation/Skin Start: 02/15/20 07:21 Freq: Status: Active Protocol: Document 02/16/20 12:55 MB (Rec: 02/16/20 16:09 MB [id number]) Posture Evaluation Comments Posture Comments Standing posture: increased body mass, decreased cervical lordosis, Dowager's hump, some lipoma areas chest, left arm, back noted, increased lumbar lordosis, anterior tilt pelvis , pelvic obliquities with right iliac crest higher than the left and pt reporting tenderness to touch over left iliac crest that might be related to old lipoma removal. Tension and pain over left T12 vertebra and ribs compared to the right, pt wears Randall boots and has increased resting toe extension greater on the right foot and increased right Naya angle compared to the left. Pt reports unstable ankles, greater on the left and frequent rolling of his ankles. Range of spine with movements: decreased SB B with most movement at shoulders and decreased movement T12 area, forward flexion decreases with repetition and pt reports that he prefers extension positions. Sitting thoracic rotation with left rotation 25 % less than the right. PT-OP-K Range of Motion Start: 02/15/20 07:21 Freq: Status: Active Protocol: Document 02/16/20 12:55 MB (Rec: 02/16/20 16:09 MB [id number]) Shoulder Goniometric Range of Motion Shoulder B Shoulder ROM WFL Yes Testing Position Sitting Elbow/Forearm Range of Motion Elbow/Forearm B Elbow/Forearm ROM WFL Yes ROM Testing Position Sitting Comments Hypermobility into extension left elbow PT-OP-M Strength Start: 02/15/20 07:21 Freq: Status: Active Protocol: Document 02/16/20 12:55 MB (Rec: 02/16/20 16:09 MB [id number]) Shoulder Strength Shoulder Manual Muscle Testing Left Flexion 4 Good Abduction (C5) 5 Normal External Rotation 4 Good Internal Rotation 4 Good Right Flexion 4 Good Abduction (C5) 5 Normal External Rotation 5 Normal Internal Rotation 5 Normal Elbow/Forearm Strength Elbow and Forearm Manual Muscle Testing Left Flexion (C6) 5 Normal Extension (C7) 5 Normal Pronation 5 Normal Supination 5 Normal Right Flexion (C6) 5 Normal Extension (C7) 5 Normal Pronation 5 Normal Supination 5 Normal Hip Strength Hip Manual Muscle Testing Left Flexion (L2) 4 Good Abduction 4 Good Right Flexion (L2) 5 Normal Abduction 5 Normal Knee Strength Knee Manual Muscle Testing B Extension (L3) 5 Normal PT-OP-Q Treatments Start: 02/15/20 07:21 Freq: Status: Active Protocol: Document 03/06/20 13:01 MB (Rec: 03/06/20 13:39 MB [id number]) Gym Equipment Therapeutic Ball Hip flexor relaxation Ball Size/Color 65 cm ball, green Body Position Hooklying Comments 5 reps active shoulder flexion B, diaphragm breathing, pect stretch with diaphragm breathing Therapeutic Exercises Supine Exercises Buteyko breathing Supine Exercise Name 1: 15 sec hold, sats 98%, HR 70 BPM x2, 2: 7 sec, 10 sec 3: 15 sec x2 Equipment Used 65 cm ball Comments RA: sats 96%, HR 73 BPM before treatment Diaphragm breathing Equipment Used 65 cm ball Comments Pt performs today Standing Exercises racquetball rolling back at wall Side bilateral Comments Intrascapular muscles, cervical rotation, glutes/hip rotators Manual Therapy Treatment Other Other Manual Treatments Positional release B thoracic paraspinals PT-OP-T Assessment and Plan Start: 02/15/20 07:21 Freq: Status: Active Protocol: Document 03/06/20 13:01 MB (Rec: 03/06/20 13:39 MB [id number]) Physical Therapy Assessment Rehab Potential Rehabilitation Potential Good Evaluation Complexity Number of Personal Factors/Comorbidities 1-2 Number of Body Systems Impaired 1-2 Clinical Presentation at Evaluation Stable Impairments Impairments Activity Tolerance,Balance, Functional Activities, Functional Mobility,Integument ,Pain,Posture,ROM,Soft Tissue Mobility,Strength Goals 4 Solar Installation Manager Goal (LTG) Pt will report an overall 75% improvement in pain to improve quality of life by 04/17/2020. LTG Duration 8 weeks 3 Mcfp Goal (LTG) Pt will present with improved B shoulder flexion and left hip flexion and abduction strength to 5/5 to improve functional strength by 2020. LTG Duration 8 weeks 2 Solar Installation Manager Goal (LTG) Pt will perform progressive HEP with I including postural, strengthening, flexibility, body mechanics, ergonomic, breathing and relaxation exercises to improve overall posture, pain and functional strength by 04/17/2020. LTG Duration 8 weeks 1 Solar Installation Manager Goal (LTG) Pt will present with improved Oswestry score to reflect no more than 20% impairment to improve functional activities by 04/17/2020. LTG Duration 8 weeks Assessment Summary Assessment HEP progression today included pect stretch in hook lying and use of racquet ball for intrascapular area. Con't progression with strengthening UEs in hook lying with legs over ball/couch. Con't manual work. Physical Therapy Plan Frequency and Duration Frequency of Treatment 2x/Week Duration of Treatment 8 weeks Plan of Care Start Date 02/16/20 Plan of Care End Date 04/17/20 Therapeutic Interventions Therapeutic Interventions Balance Training,Canalithic Repositioning,Coordination Training,Home Exercise Program ,Joint Mobilizations,Manual Therapy,Neuromuscular Re- education,Patient/Caregiver Education,Self-Care/Home Management,Sensory Integration ,Soft Tissue Mobilization, Taping,Therapeutic Activities, Therapeutic Exercises Modalities Cold Pack/Ice Massage,Electric Stimulation,Hot Packs, Ultrasound Next Visit Focus/Plan Next Note Type Treatment Note Next Visit Plan Progress core and shoulder strengthening in hook lying with legs up on ball/couch. Con't manual work.
--- NOTE | 2020-03-08 13:56 | PT.OTN ---
Current Diagnoses Wedge compression fracture of T11-T12 vertebra, initial encounter for closed fracture (03/08/20) Physical Therapy Treatment Note PT-OP-A Visit Information Start: 02/15/20 07:21 Freq: Status: Active Protocol: Document 03/08/20 13:03 MB (Rec: 03/08/20 13:55 MB [id number]) Out-Patient Physical Therapy Visit Information Visit Information Visit Type Treatment Note Visit Start Time 13:03 Visit Stop Time 13:56 Total Visit Minutes 53 Visit Number 6 PT-OP-B Current Condition Start: 02/15/20 07:21 Freq: Status: Active Protocol: Document 02/16/20 12:55 MB (Rec: 02/16/20 13:29 MB [id number]) Current Condition History of Current Condition Onset Date 02/11/2019 Current Complaints Inconsistent thoracic pain History of Current Condition On 02/11/2019, pt's right foot got stuck in a hole and he fell hard on his tailbone and back. 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 He had severe tailbone pain and back pain after the injury. He thinks he was in shock for a few days. He did not miss work . He finally went to the doctor in March and was found to have a T12 compression fracture. He no longer has tailbone pain but reports 8-10/10 lower thoracic -upper lumbar pain with being up on his feet standing or walking for 10 minutes. Pt reports a shooting pain. He also has dull and nausea pain. Pt drives 1 hour to work and 1 hour back from work 40-70 hours a week. Pt is concerned about weight gain. He works 3rd shift. He does not have pain with driving. He will be changing to 2nd shift. Pt states that he doesn't sleep well. He sleeps on his stomach. He has pain if he lies down more than 6-7 hours a night. He slept on a hard mattress on his back for a few weeks when he had a lot of pain. He also got into hip flexor relaxation position. 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 He does not think this is related to his back and thinks it is related to overuse. Pt has multiple cuts from work . Pt has history of headaches. Prior Treatments and Tests X-ray lumbar spine 04/21/2019: mild anterior wedging T12 new since 01/08/15 and age indeterminate and lumbar spondylosis and diffuse facet arthropathy Treatment Goals Patient/Caregiver Goals To lose weight and get back to exercising, walking and hiking. PT-OP-C Subjective Start: 02/15/20 07:21 Freq: Status: Active Protocol: Document 03/08/20 13:03 MB (Rec: 03/08/20 13:55 MB [id number]) OP-PT Subjective Patient Comments Patient Comments This morning I got to go for a walk for 10-15 minutes. Pt states that the back of his hips got tight and the bottom of his left foot got flat tire. PT-OP-J Posture/Palpation/Skin Start: 02/15/20 07:21 Freq: Status: Active Protocol: Document 02/16/20 12:55 MB (Rec: 02/16/20 16:09 MB [id number]) Posture Evaluation Comments Posture Comments Standing posture: increased body mass, decreased cervical lordosis, Dowager's hump, some lipoma areas chest, left arm, back noted, increased lumbar lordosis, anterior tilt pelvis , pelvic obliquities with right iliac crest higher than the left and pt reporting tenderness to touch over left iliac crest that might be related to old lipoma removal. Tension and pain over left T12 vertebra and ribs compared to the right, pt wears Randall boots and has increased resting toe extension greater on the right foot and increased right Naya angle compared to the left. Pt reports unstable ankles, greater on the left and frequent rolling of his ankles. Range of spine with movements: decreased SB B with most movement at shoulders and decreased movement T12 area, forward flexion decreases with repetition and pt reports that he prefers extension positions. Sitting thoracic rotation with left rotation 25 % less than the right. PT-OP-K Range of Motion Start: 02/15/20 07:21 Freq: Status: Active Protocol: Document 02/16/20 12:55 MB (Rec: 02/16/20 16:09 MB [id number]) Shoulder Goniometric Range of Motion Shoulder B Shoulder ROM WFL Yes Testing Position Sitting Elbow/Forearm Range of Motion Elbow/Forearm B Elbow/Forearm ROM WFL Yes ROM Testing Position Sitting Comments Hypermobility into extension left elbow PT-OP-M Strength Start: 02/15/20 07:21 Freq: Status: Active Protocol: Document 02/16/20 12:55 MB (Rec: 02/16/20 16:09 MB [id number]) Shoulder Strength Shoulder Manual Muscle Testing Left Flexion 4 Good Abduction (C5) 5 Normal External Rotation 4 Good Internal Rotation 4 Good Right Flexion 4 Good Abduction (C5) 5 Normal External Rotation 5 Normal Internal Rotation 5 Normal Elbow/Forearm Strength Elbow and Forearm Manual Muscle Testing Left Flexion (C6) 5 Normal Extension (C7) 5 Normal Pronation 5 Normal Supination 5 Normal Right Flexion (C6) 5 Normal Extension (C7) 5 Normal Pronation 5 Normal Supination 5 Normal Hip Strength Hip Manual Muscle Testing Left Flexion (L2) 4 Good Abduction 4 Good Right Flexion (L2) 5 Normal Abduction 5 Normal Knee Strength Knee Manual Muscle Testing B Extension (L3) 5 Normal PT-OP-Q Treatments Start: 02/15/20 07:21 Freq: Status: Active Protocol: Document 03/08/20 13:03 MB (Rec: 03/08/20 13:55 MB [id number]) Therapeutic Exercises Supine Exercises Hamstring stretch with APs, hip abductor and adductor stretches Side bilateral Comments 30 sec with APs for hamstring stretch, adductor (as needed) and abductor Selvin stretch Side bilateral Comments Abdominal drawing in first, think about core and breathing Diaphragm breathing Comments Performed hook lying today, 5 reps after exercise Manual Therapy Treatment Other Other Manual Treatments Pt prone: Rib recoil, grade II -III, scapular mobs B, tighter on the left PT-OP-T Assessment and Plan Start: 02/15/20 07:21 Freq: Status: Active Protocol: Document 03/08/20 13:03 MB (Rec: 03/08/20 13:55 MB [id number]) Physical Therapy Assessment Rehab Potential Rehabilitation Potential Good Evaluation Complexity Number of Personal Factors/Comorbidities 1-2 Number of Body Systems Impaired 1-2 Clinical Presentation at Evaluation Stable Impairments Impairments Activity Tolerance,Balance, Functional Activities, Functional Mobility,Integument ,Pain,Posture,ROM,Soft Tissue Mobility,Strength Goals 4 Mcfp Goal (LTG) Pt will report an overall 75% improvement in pain to improve quality of life by 04/17/2020. LTG Duration 8 weeks 3 Health Education Aide Goal (LTG) Pt will present with improved B shoulder flexion and left hip flexion and abduction strength to 5/5 to improve functional strength by 2020. LTG Duration 8 weeks 2 Health Education Aide Goal (LTG) Pt will perform progressive HEP with I including postural, strengthening, flexibility, body mechanics, ergonomic, breathing and relaxation exercises to improve overall posture, pain and functional strength by 04/17/2020. LTG Duration 8 weeks 1 Health Education Aide Goal (LTG) Pt will present with improved Oswestry score to reflect no more than 20% impairment to improve functional activities by 04/17/2020. LTG Duration 8 weeks Assessment Summary Assessment Pt got back to walking and this is progress. Took a long part of treatment describing and practicing stretches so that pt can perform successfully at home. Manual work for thoracic tension today, his rinbs are very tight and he does not breathe deeply. Physical Therapy Plan Frequency and Duration Frequency of Treatment 2x/Week Duration of Treatment 8 weeks Plan of Care Start Date 02/16/20 Plan of Care End Date 04/17/20 Therapeutic Interventions Therapeutic Interventions Balance Training,Canalithic Repositioning,Coordination Training,Home Exercise Program ,Joint Mobilizations,Manual Therapy,Neuromuscular Re- education,Patient/Caregiver Education,Self-Care/Home Management,Sensory Integration ,Soft Tissue Mobilization, Taping,Therapeutic Activities, Therapeutic Exercises Modalities Cold Pack/Ice Massage,Electric Stimulation,Hot Packs, Ultrasound Next Visit Focus/Plan Next Note Type Treatment Note Next Visit Plan Progress core and shoulder strengthening in hook lying with legs up on ball/couch. Con't manual work including thoracic mobilizations.
--- NOTE | 2020-03-14 15:14 | PT.OTN ---
Current Diagnoses Wedge compression fracture of T11-T12 vertebra, initial encounter for closed fracture (03/14/20) Physical Therapy Treatment Note PT-OP-A Visit Information Start: 02/15/20 07:21 Freq: Status: Active Protocol: Document 03/14/20 14:35 MB (Rec: 03/14/20 15:13 MB [id number]) Out-Patient Physical Therapy Visit Information Visit Information Visit Type Treatment Note Visit Start Time 14:35 Visit Stop Time 15:13 Total Visit Minutes 38 Visit Number 7 PT-OP-B Current Condition Start: 02/15/20 07:21 Freq: Status: Active Protocol: Document 02/16/20 12:55 MB (Rec: 02/16/20 13:29 MB [id number]) Current Condition History of Current Condition Onset Date 02/11/2019 Current Complaints Inconsistent thoracic pain History of Current Condition On 02/11/2019, pt's right foot got stuck in a hole and he fell hard on his tailbone and back. 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 and it has a a round bottom. 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 He had severe tailbone pain and back pain after the injury. He thinks he was in shock for a few days. He did not miss work . He finally went to the doctor in March and was found to have a T12 compression fracture. He no longer has tailbone pain but reports 8-10/10 lower thoracic -upper lumbar pain with being up on his feet standing or walking for 10 minutes. Pt reports a shooting pain. He also has dull and nausea pain. Pt drives 1 hour to work and 1 hour back from work 40-70 hours a week. Pt is concerned about weight gain. He works 3rd shift. He does not have pain with driving. He will be changing to 2nd shift. Pt states that he doesn't sleep well. He sleeps on his stomach. He has pain if he lies down more than 6-7 hours a night. He slept on a hard mattress on his back for a few weeks when he had a lot of pain. He also got into hip flexor relaxation position. 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 He does not think this is related to his back and thinks it is related to overuse. Pt has multiple cuts from work . Pt has history of headaches. Prior Treatments and Tests X-ray lumbar spine 04/21/2019: mild anterior wedging T12 new since 01/08/15 and age indeterminate and lumbar spondylosis and diffuse facet arthropathy Treatment Goals Patient/Caregiver Goals To lose weight and get back to exercising, walking and hiking. PT-OP-C Subjective Start: 02/15/20 07:21 Freq: Status: Active Protocol: Document 03/14/20 14:35 MB (Rec: 03/14/20 15:13 MB [id number]) OP-PT Subjective Patient Comments Patient Comments My back is tight and I think it is because I have been doing a lot of [place] stuff like wrapping. PT-OP-J Posture/Palpation/Skin Start: 02/15/20 07:21 Freq: Status: Active Protocol: Document 02/16/20 12:55 MB (Rec: 02/16/20 16:09 MB [id number]) Posture Evaluation Comments Posture Comments Standing posture: increased body mass, decreased cervical lordosis, Dowager's hump, some lipoma areas chest, left arm, back noted, increased lumbar lordosis, anterior tilt pelvis , pelvic obliquities with right iliac crest higher than the left and pt reporting tenderness to touch over left iliac crest that might be related to old lipoma removal. Tension and pain over left T12 vertebra and ribs compared to the right, pt wears Randall boots and has increased resting toe extension greater on the right foot and increased right Naya angle compared to the left. Pt reports unstable ankles, greater on the left and frequent rolling of his ankles. Range of spine with movements: decreased SB B with most movement at shoulders and decreased movement T12 area, forward flexion decreases with repetition and pt reports that he prefers extension positions. Sitting thoracic rotation with left rotation 25 % less than the right. PT-OP-K Range of Motion Start: 02/15/20 07:21 Freq: Status: Active Protocol: Document 02/16/20 12:55 MB (Rec: 02/16/20 16:09 MB [id number]) Shoulder Goniometric Range of Motion Shoulder B Shoulder ROM WFL Yes Testing Position Sitting Elbow/Forearm Range of Motion Elbow/Forearm B Elbow/Forearm ROM WFL Yes ROM Testing Position Sitting Comments Hypermobility into extension left elbow PT-OP-M Strength Start: 02/15/20 07:21 Freq: Status: Active Protocol: Document 02/16/20 12:55 MB (Rec: 02/16/20 16:09 MB [id number]) Shoulder Strength Shoulder Manual Muscle Testing Left Flexion 4 Good Abduction (C5) 5 Normal External Rotation 4 Good Internal Rotation 4 Good Right Flexion 4 Good Abduction (C5) 5 Normal External Rotation 5 Normal Internal Rotation 5 Normal Elbow/Forearm Strength Elbow and Forearm Manual Muscle Testing Left Flexion (C6) 5 Normal Extension (C7) 5 Normal Pronation 5 Normal Supination 5 Normal Right Flexion (C6) 5 Normal Extension (C7) 5 Normal Pronation 5 Normal Supination 5 Normal Hip Strength Hip Manual Muscle Testing Left Flexion (L2) 4 Good Abduction 4 Good Right Flexion (L2) 5 Normal Abduction 5 Normal Knee Strength Knee Manual Muscle Testing B Extension (L3) 5 Normal PT-OP-Q Treatments Start: 02/15/20 07:21 Freq: Status: Active Protocol: Document 03/14/20 14:35 MB (Rec: 03/14/20 15:13 MB [id number]) Manual Therapy Treatment Other Other Manual Treatments Pt prone: rib recoil, grade II -III, scapular mobs B, tighter on the left than the right again today, gentle STM B QL PT-OP-T Assessment and Plan Start: 02/15/20 07:21 Freq: Status: Active Protocol: Document 03/14/20 14:35 MB (Rec: 03/14/20 15:13 MB [id number]) Physical Therapy Assessment Rehab Potential Rehabilitation Potential Good Evaluation Complexity Number of Personal Factors/Comorbidities 1-2 Number of Body Systems Impaired 1-2 Clinical Presentation at Evaluation Stable Impairments Impairments Activity Tolerance,Balance, Functional Activities, Functional Mobility,Integument ,Pain,Posture,ROM,Soft Tissue Mobility,Strength Goals 4 Halfway Goal (LTG) Pt will report an overall 75% improvement in pain to improve quality of life by 04/17/2020. LTG Duration 8 weeks 3 Halfway Goal (LTG) Pt will present with improved B shoulder flexion and left hip flexion and abduction strength to 5/5 to improve functional strength by 2020. LTG Duration [address] Judge Goal (LTG) Pt will perform progressive HEP with I including postural, strengthening, flexibility, body mechanics, ergonomic, breathing and relaxation exercises to improve overall posture, pain and functional strength by 04/17/2020. LTG Duration [address] Judge Goal (LTG) Pt will present with improved Oswestry score to reflect no more than 20% impairment to improve functional activities by 04/17/2020. 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 Con't progression. Physical Therapy Plan Frequency and Duration Frequency of Treatment 2x/Week Duration of Treatment 8 weeks Plan of Care Start Date 02/16/20 Plan of Care End Date 04/17/20 Therapeutic Interventions Therapeutic Interventions Balance Training,Canalithic Repositioning,Coordination Training,Home Exercise Program ,Joint Mobilizations,Manual Therapy,Neuromuscular Re- education,Patient/Caregiver Education,Self-Care/Home Management,Sensory Integration ,Soft Tissue Mobilization, Taping,Therapeutic Activities, Therapeutic Exercises Modalities Cold Pack/Ice Massage,Electric Stimulation,Hot Packs, Ultrasound Next Visit Focus/Plan Next Note Type Treatment Note Next Visit Plan Consider QL stretch/work. Progress core and shoulder strengthening in hook lying with legs up on ball/couch. Con't manual work including thoracic mobilizations.
--- NOTE | 2020-03-20 08:10 | PT.OTN ---
Current Diagnoses Wedge compression fracture of T11-T12 vertebra, initial encounter for closed fracture (03/20/20) Physical Therapy Treatment Note PT-OP-A Visit Information Start: 02/15/20 07:21 Freq: Status: Active Protocol: Document 03/20/20 07:32 MB (Rec: 03/20/20 08:09 MB [id number]) Out-Patient Physical Therapy Visit Information Visit Information Visit Type Treatment Note Visit Start Time 07:32 Visit Stop Time 08:10 Total Visit Minutes 38 Visit Number 8 PT-OP-B Current Condition Start: 02/15/20 07:21 Freq: Status: Active Protocol: Document 02/16/20 12:55 MB (Rec: 02/16/20 13:29 MB [id number]) Current Condition History of Current Condition Onset Date 02/11/2019 Current Complaints Inconsistent thoracic pain History of Current Condition On 02/11/2019, pt's right foot got stuck in a hole and he fell hard on his tailbone and back. 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 He had severe tailbone pain and back pain after the injury. He thinks he was in shock for a few days. He did not miss work . He finally went to the doctor in March and was found to have a T12 compression fracture. He no longer has tailbone pain but reports 8-10/10 lower thoracic -upper lumbar pain with being up on his feet standing or walking for 10 minutes. Pt reports a shooting pain. He also has dull and nausea pain. Pt drives 1 hour to work and 1 hour back from work 40-70 hours a week. Pt is concerned about weight gain. He works 3rd shift. He does not have pain with driving. He will be changing to 2nd shift. Pt states that he doesn't sleep well. He sleeps on his stomach. He has pain if he lies down more than 6-7 hours a night. He slept on a hard mattress on his back for a few weeks when he had a lot of pain. He also got into hip flexor relaxation position. 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 He does not think this is related to his back and thinks it is related to overuse. Pt has multiple cuts from work . Pt has history of headaches. Prior Treatments and Tests X-ray lumbar spine 04/21/2019: mild anterior wedging T12 new since 01/08/15 and age indeterminate and lumbar spondylosis and diffuse facet arthropathy Treatment Goals Patient/Caregiver Goals To lose weight and get back to exercising, walking and hiking. PT-OP-C Subjective Start: 02/15/20 07:21 Freq: Status: Active Protocol: Document 03/20/20 07:32 MB (Rec: 03/20/20 08:09 MB [id number]) OP-PT Subjective Patient Comments Patient Comments Everything is pretty normal. The more I can move, the more I notice the areas I want to lose weight. PT-OP-J Posture/Palpation/Skin Start: 02/15/20 07:21 Freq: Status: Active Protocol: Document 02/16/20 12:55 MB (Rec: 02/16/20 16:09 MB [id number]) Posture Evaluation Comments Posture Comments Standing posture: increased body mass, decreased cervical lordosis, Dowager's hump, some lipoma areas chest, left arm, back noted, increased lumbar lordosis, anterior tilt pelvis , pelvic obliquities with right iliac crest higher than the left and pt reporting tenderness to touch over left iliac crest that might be related to old lipoma removal. Tension and pain over left T12 vertebra and ribs compared to the right, pt wears Randall boots and has increased resting toe extension greater on the right foot and increased right Naya angle compared to the left. Pt reports unstable ankles, greater on the left and frequent rolling of his ankles. Range of spine with movements: decreased SB B with most movement at shoulders and decreased movement T12 area, forward flexion decreases with repetition and pt reports that he prefers extension positions. Sitting thoracic rotation with left rotation 25 % less than the right. PT-OP-K Range of Motion Start: 02/15/20 07:21 Freq: Status: Active Protocol: Document 02/16/20 12:55 MB (Rec: 02/16/20 16:09 MB [id number]) Shoulder Goniometric Range of Motion Shoulder B Shoulder ROM WFL Yes Testing Position Sitting Elbow/Forearm Range of Motion Elbow/Forearm B Elbow/Forearm ROM WFL Yes ROM Testing Position Sitting Comments Hypermobility into extension left elbow PT-OP-M Strength Start: 02/15/20 07:21 Freq: Status: Active Protocol: Document 02/16/20 12:55 MB (Rec: 02/16/20 16:09 MB [id number]) Shoulder Strength Shoulder Manual Muscle Testing Left Flexion 4 Good Abduction (C5) 5 Normal External Rotation 4 Good Internal Rotation 4 Good Right Flexion 4 Good Abduction (C5) 5 Normal External Rotation 5 Normal Internal Rotation 5 Normal Elbow/Forearm Strength Elbow and Forearm Manual Muscle Testing Left Flexion (C6) 5 Normal Extension (C7) 5 Normal Pronation 5 Normal Supination 5 Normal Right Flexion (C6) 5 Normal Extension (C7) 5 Normal Pronation 5 Normal Supination 5 Normal Hip Strength Hip Manual Muscle Testing Left Flexion (L2) 4 Good Abduction 4 Good Right Flexion (L2) 5 Normal Abduction 5 Normal Knee Strength Knee Manual Muscle Testing B Extension (L3) 5 Normal PT-OP-Q Treatments Start: 02/15/20 07:21 Freq: Status: Active Protocol: Document 03/20/20 07:32 MB (Rec: 03/20/20 08:09 MB [id number]) Cardio Equipment Upper Body Ergometer (UBE) Duration (Minutes) 10 Other 1' forward and 1' backward Therapeutic Exercises Supine Exercises Pool noodle exercises Supine Exercise Name Abd drawing in, pelvic tilt, shoulder flexion Comments 10 reps shoulder flexion, B together and alternating Core progression Supine Exercise Name Abd drawing in, HS, mini march , knee fall out Side bilateral Comments 10 reps all, cues for form, set core PT-OP-T Assessment and Plan Start: 02/15/20 07:21 Freq: Status: Active Protocol: Document 03/20/20 07:32 MB (Rec: 03/20/20 08:09 MB [id number]) Physical Therapy Assessment Rehab Potential Rehabilitation Potential Good Evaluation Complexity Number of Personal Factors/Comorbidities 1-2 Number of Body Systems Impaired 1-2 Clinical Presentation at Evaluation Stable Impairments Impairments Activity Tolerance,Balance, Functional Activities, Functional Mobility,Integument ,Pain,Posture,ROM,Soft Tissue Mobility,Strength Goals 4 Nursing Home Goal (LTG) Pt will report an overall 75% improvement in pain to improve quality of life by 04/17/2020. LTG Duration 8 weeks 3 Nursing Home Goal (LTG) Pt will present with improved B shoulder flexion and left hip flexion and abduction strength to 5/5 to improve functional strength by 2020. LTG Duration 8 weeks 2 [employer] Goal (LTG) Pt will perform progressive HEP with I including postural, strengthening, flexibility, body mechanics, ergonomic, breathing and relaxation exercises to improve overall posture, pain and functional strength by 04/17/2020. LTG Duration 8 weeks 1 Nursing Home Goal (LTG) Pt will present with improved Oswestry score to reflect no more than 20% impairment to improve functional activities by 04/17/2020. LTG Duration 8 weeks Assessment Summary Assessment Progressed core exercises today and flexibility over pool noodle. Con't manual work including QL recoil and progress strengthening for UEs over pool noodle and hips in hook lying as well. Physical Therapy Plan Frequency and Duration Frequency of Treatment 2x/Week Duration of Treatment 8 weeks Plan of Care Start Date 02/16/20 Plan of Care End Date 04/17/20 Therapeutic Interventions Therapeutic Interventions Balance Training,Canalithic Repositioning,Coordination Training,Home Exercise Program ,Joint Mobilizations,Manual Therapy,Neuromuscular Re- education,Patient/Caregiver Education,Self-Care/Home Management,Sensory Integration ,Soft Tissue Mobilization, Taping,Therapeutic Activities, Therapeutic Exercises Modalities Cold Pack/Ice Massage,Electric Stimulation,Hot Packs, Ultrasound Next Visit Focus/Plan Next Note Type Treatment Note Next Visit Plan Progress strengthening in hook lying, possibly on pool noodle. Consider gentle bridge if this doesn't bother pt. Con't manual work including thoracic mobilizations.
--- NOTE | 2020-03-26 09:39 | PT.OTN ---
Current Diagnoses Wedge compression fracture of T11-T12 vertebra, initial encounter for closed fracture (03/26/20) Physical Therapy Treatment Note PT-OP-A Visit Information Start: 02/15/20 07:21 Freq: Status: Active Protocol: Document 03/26/20 08:17 MB (Rec: 03/26/20 09:39 MB [id number]) Out-Patient Physical Therapy Visit Information Visit Information Visit Type Treatment Note Visit Start Time 08:17 Visit Stop Time 09:15 Total Visit Minutes 58 Visit Number 9 PT-OP-B Current Condition Start: 02/15/20 07:21 Freq: Status: Active Protocol: Document 02/16/20 12:55 MB (Rec: 02/16/20 13:29 MB [id number]) Current Condition History of Current Condition Onset Date 02/11/2019 Current Complaints Inconsistent thoracic pain History of Current Condition On 02/11/2019, pt's right foot got stuck in a hole and he fell hard on his tailbone and back. 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 He had severe tailbone pain and back pain after the injury. He thinks he was in shock for a few days. He did not miss work . He finally went to the doctor in March and was found to have a T12 compression fracture. He no longer has tailbone pain but reports 8-10/10 lower thoracic -upper lumbar pain with being up on his feet standing or walking for 10 minutes. Pt reports a shooting pain. He also has dull and nausea pain. Pt drives 1 hour to work and 1 hour back from work 40-70 hours a week. Pt is concerned about weight gain. He works 3rd shift. He does not have pain with driving. He will be changing to 2nd shift. Pt states that he doesn't sleep well. He sleeps on his stomach. He has pain if he lies down more than 6-7 hours a night. He slept on a hard mattress on his back for a few weeks when he had a lot of pain. He also got into hip flexor relaxation position. 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 He does not think this is related to his back and thinks it is related to overuse. Pt has multiple cuts from work . Pt has history of headaches. Prior Treatments and Tests X-ray lumbar spine 04/21/2019: mild anterior wedging T12 new since 01/08/15 and age indeterminate and lumbar spondylosis and diffuse facet arthropathy Treatment Goals Patient/Caregiver Goals To lose weight and get back to exercising, walking and hiking. PT-OP-C Subjective Start: 02/15/20 07:21 Freq: Status: Active Protocol: Document 03/26/20 08:17 MB (Rec: 03/26/20 09:39 MB [id number]) OP-PT Subjective Patient Comments Patient Comments I'm doing good. I sometimes have pain near my scars on my back and I have a hard time telling when it's that or my back. PT-OP-J Posture/Palpation/Skin Start: 02/15/20 07:21 Freq: Status: Active Protocol: Document 02/16/20 12:55 MB (Rec: 02/16/20 16:09 MB [id number]) Posture Evaluation Comments Posture Comments Standing posture: increased body mass, decreased cervical lordosis, Dowager's hump, some lipoma areas chest, left arm, back noted, increased lumbar lordosis, anterior tilt pelvis , pelvic obliquities with right iliac crest higher than the left and pt reporting tenderness to touch over left iliac crest that might be related to old lipoma removal. Tension and pain over left T12 vertebra and ribs compared to the right, pt wears Randall boots and has increased resting toe extension greater on the right foot and increased right Naya angle compared to the left. Pt reports unstable ankles, greater on the left and frequent rolling of his ankles. Range of spine with movements: decreased SB B with most movement at shoulders and decreased movement T12 area, forward flexion decreases with repetition and pt reports that he prefers extension positions. Sitting thoracic rotation with left rotation 25 % less than the right. PT-OP-K Range of Motion Start: 02/15/20 07:21 Freq: Status: Active Protocol: Document 02/16/20 12:55 MB (Rec: 02/16/20 16:09 MB [id number]) Shoulder Goniometric Range of Motion Shoulder B Shoulder ROM WFL Yes Testing Position Sitting Elbow/Forearm Range of Motion Elbow/Forearm B Elbow/Forearm ROM WFL Yes ROM Testing Position Sitting Comments Hypermobility into extension left elbow PT-OP-M Strength Start: 02/15/20 07:21 Freq: Status: Active Protocol: Document 02/16/20 12:55 MB (Rec: 02/16/20 16:09 MB [id number]) Shoulder Strength Shoulder Manual Muscle Testing Left Flexion 4 Good Abduction (C5) 5 Normal External Rotation 4 Good Internal Rotation 4 Good Right Flexion 4 Good Abduction (C5) 5 Normal External Rotation 5 Normal Internal Rotation 5 Normal Elbow/Forearm Strength Elbow and Forearm Manual Muscle Testing Left Flexion (C6) 5 Normal Extension (C7) 5 Normal Pronation 5 Normal Supination 5 Normal Right Flexion (C6) 5 Normal Extension (C7) 5 Normal Pronation 5 Normal Supination 5 Normal Hip Strength Hip Manual Muscle Testing Left Flexion (L2) 4 Good Abduction 4 Good Right Flexion (L2) 5 Normal Abduction 5 Normal Knee Strength Knee Manual Muscle Testing B Extension (L3) 5 Normal PT-OP-Q Treatments Start: 02/15/20 07:21 Freq: Status: Active Protocol: Document 03/26/20 08:17 MB (Rec: 03/26/20 09:39 MB [id number]) Gym Equipment Therapeutic Ball Progressive therapy ball exercises Comments Initiated sitting on the therapy ball today, pelvic range, balance and breathing. Pt to start sitting on his ball with shoes on at home Therapeutic Exercises Supine Exercises Core progression Comments Reviewed today, to perform T/ Th/Sat at home Hamstring stretch with APs, hip abductor and adductor stretches Comments Reviewed today, to perform everyday at home Selvin stretch Comments Reviewed today, to perform everyday at home Buteyko breathing Comments Reviewed today and to perform everyday at home Diaphragm breathing Comments To perform as needed at home Standing Exercises Kids' outdoor ball thoracic mobility Comments Performed today and pt to get for home racquetball rolling back at wall Comments To perform as needed at home PT-OP-T Assessment and Plan Start: 02/15/20 07:21 Freq: Status: Active Protocol: Document 03/26/20 08:17 MB (Rec: 03/26/20 09:39 MB [id number]) Physical Therapy Assessment Rehab Potential Rehabilitation Potential Good Evaluation Complexity Number of Personal Factors/Comorbidities 1-2 Number of Body Systems Impaired 1-2 Clinical Presentation at Evaluation Stable Impairments Impairments Activity Tolerance,Balance, Functional Activities, Functional Mobility,Integument ,Pain,Posture,ROM,Soft Tissue Mobility,Strength Goals 5 Dry Cleaning Machine Operator Helper Goal (LTG) Pt will hike for 1 hour with water pack with reports of no more than 1/10 pain by 05/27/20 . 4 Dry Cleaning Machine Operator Helper Goal (LTG) Pt will report an overall 75% improvement in pain to improve quality of life by 05/27/20. 03/26/2020: Pt reports an overall 50% improvement in pain since starting PT. He reports that his muscles get tired throughout the day and would like for his core to support him throughout the day without pain. LTG Duration 8 weeks 3 Dry Cleaning Machine Operator Helper Goal (LTG) Pt will present with improved B shoulder flexion and left hip flexion and abduction strength to 5/5 to improve functional strength by 05/27/20 . 03/26/2020: B shoulder flexion 5/5, B hip flexion and right hip abduction 5/5 and left hip flexion 4/5 LTG Duration 8 weeks 2 Dry Cleaning Machine Operator Helper Goal (LTG) Pt will perform progressive HEP with I including postural, strengthening, flexibility, body mechanics, ergonomic, breathing and relaxation exercises to improve overall posture, pain and functional strength by 05/27/20. 03/26/2020: Pt is performing exercises and would like to revise HEP. LTG Duration 8 weeks 1 Dry Cleaning Machine Operator Helper Goal (LTG) Pt will present with improved Oswestry score to reflect no more than 20% impairment to improve functional activities by 05/27/20. 03/26/2020: Oswestry score reflects 32% impairment. This is a 14% improvement since starting PT. Pt can now put on his shoes without pain. Pt is able to sleep about 6.5 hours . LTG Duration 8 weeks Progress Towards Goals Progress Towards Goals Progressing Toward Goals Assessment Summary Assessment Pt has progressed towards all PT goals since starting PT. These include reports of pain, strength, Oswestry score and performance of HEP. He has gotten back to walking but not hiking. Pt will benefit from ongoing PT to improve pain, thoracic mobility, core and hip strength and prepare for return to hiking. Con't manual work including QL recoil and progress strengthening. Consider thoracic flexibility for QL and thoracic rotation ( gentle) in sitting. HEP updated 03/26/2020: Everyday: Buteyko breathing, stretches lying down arms overhead, arm scissors, pect stretch, core tight), hamstring stretch, Selvin stretch. M/W/F: Racquet ball and kids's ball massages. T/Th /Sat: Core progression exercises. As needed: Lumbar rotation, diaphragmatic breathing. Pt to start going for more walks, mini hikes and sit on therapy ball at home Physical Therapy Plan Frequency and Duration Frequency of Treatment 2x/Week Duration of Treatment 8 weeks Plan of Care Start Date 03/26/20 Plan of Care End Date 05/27/20 Therapeutic Interventions Therapeutic Interventions Balance Training,Canalithic Repositioning,Coordination Training,Home Exercise Program ,Joint Mobilizations,Manual Therapy,Neuromuscular Re- education,Patient/Caregiver Education,Self-Care/Home Management,Sensory Integration ,Soft Tissue Mobilization, Taping,Therapeutic Activities, Therapeutic Exercises Modalities Cold Pack/Ice Massage,Electric Stimulation,Hot Packs, Ultrasound Next Visit Focus/Plan Next Note Type Treatment Note Next Visit Plan Progress bridge, thoracic mobility in sitting, consider hip strengthening in hook lying vs standing, further exercises over therapy ball
--- NOTE | 2020-03-26 09:40 | PT.OPPOC ---
Physical, Occupational & Speech Therapy At [facility] Current Diagnoses Wedge compression fracture of T11-T12 vertebra, initial encounter for closed fracture (03/26/20) Visit Care Team Role Provider Type Sahil Piper MD Attending Provider Physician Primary Care Provider Referring Provider Specialty: Internal Medicine Address: [address] [place] [address], [facility] Email: [email or web address] Plan Of Care PT-OP-T Assessment and Plan Start: 02/15/20 07:21 Freq: Status: Active Protocol: Document 03/26/20 08:17 MB (Rec: 03/26/20 09:39 MB [id number]) Physical Therapy Assessment Rehab Potential Rehabilitation Potential Good Evaluation Complexity Number of Personal Factors/Comorbidities 1-2 Number of Body Systems Impaired 1-2 Clinical Presentation at Evaluation Stable Impairments Impairments Activity Tolerance,Balance, Functional Activities, Functional Mobility,Integument ,Pain,Posture,ROM,Soft Tissue Mobility,Strength Goals 5 Mcc Goal (LTG) Pt will hike for 1 hour with water pack with reports of no more than 1/10 pain by 05/27/20 . 4 Mcc Goal (LTG) Pt will report an overall 75% improvement in pain to improve quality of life by 05/27/20. 03/26/2020: Pt reports an overall 50% improvement in pain since starting PT. He reports that his muscles get tired throughout the day and would like for his core to support him throughout the day without pain. LTG Duration 8 weeks 3 Mcc Goal (LTG) Pt will present with improved B shoulder flexion and left hip flexion and abduction strength to 5/5 to improve functional strength by 05/27/20 . 03/26/2020: B shoulder flexion 5/5, B hip flexion and right hip abduction 5/5 and left hip flexion 4/5 LTG Duration 8 weeks 2 Lead Oracle Developer Goal (LTG) Pt will perform progressive HEP with I including postural, strengthening, flexibility, body mechanics, ergonomic, breathing and relaxation exercises to improve overall posture, pain and functional strength by 05/27/20. 03/26/2020: Pt is performing exercises and would like to revise HEP. LTG Duration 8 weeks 1 Lead Oracle Developer Goal (LTG) Pt will present with improved Oswestry score to reflect no more than 20% impairment to improve functional activities by 05/27/20. 03/26/2020: Oswestry score reflects 32% impairment. This is a 14% improvement since starting PT. Pt can now put on his shoes without pain. Pt is able to sleep about 6.5 hours . LTG Duration 8 weeks Progress Towards Goals Progress Towards Goals Progressing Toward Goals Assessment Summary Assessment Pt has progressed towards all PT goals since starting PT. These include reports of pain, strength, Oswestry score and performance of HEP. He has gotten back to walking but not hiking. Pt will benefit from ongoing PT to improve pain, thoracic mobility, core and hip strength and prepare for return to hiking. Con't manual work including QL recoil and progress strengthening. Consider thoracic flexibility for QL and thoracic rotation ( gentle) in sitting. HEP updated 03/26/2020: Everyday: Buteyko breathing, stretches lying down arms overhead, arm scissors, pect stretch, core tight), hamstring stretch, Selvin stretch. M/W/F: Racquet ball and kids's ball massages. T/Th /Sat: Core progression exercises. As needed: Lumbar rotation, diaphragmatic breathing. Pt to start going for more walks, mini hikes and sit on therapy ball at home Physical Therapy Plan Frequency and Duration Frequency of Treatment 2x/Week Duration of Treatment 8 weeks Plan of Care Start Date 03/26/20 Plan of Care End Date 05/27/20 Therapeutic Interventions Therapeutic Interventions Balance Training,Canalithic Repositioning,Coordination Training,Home Exercise Program ,Joint Mobilizations,Manual Therapy,Neuromuscular Re- education,Patient/Caregiver Education,Self-Care/Home Management,Sensory Integration ,Soft Tissue Mobilization, Taping,Therapeutic Activities, Therapeutic Exercises Modalities Cold Pack/Ice Massage,Electric Stimulation,Hot Packs, Ultrasound Next Visit Focus/Plan Next Note Type Treatment Note Next Visit Plan Progress bridge, thoracic mobility in sitting, consider hip strengthening in hook lying vs standing, further exercises over therapy ball Plan of Care Dates Plan of Care Start Date 03/26/20 Plan of Care End Date 05/27/20 Electronically Signed by: Karla Francois, PT 03/26/20 [id number] Please Sign and Return: I have reviewed this Plan of Care and certify that the skilled therapy services above are required to meet the patient?s needs. Physician Signature Date Printed Name and Credentials Clinical Instructor Signature Printed Name and Credentials
--- NOTE | 2020-03-28 08:55 | PT.OTN ---
Current Diagnoses Wedge compression fracture of T11-T12 vertebra, initial encounter for closed fracture (03/28/20) Physical Therapy Treatment Note PT-OP-A Visit Information Start: 02/15/20 07:21 Freq: Status: Active Protocol: Document 03/28/20 08:15 MB (Rec: 03/28/20 08:53 MB [id number]) Out-Patient Physical Therapy Visit Information Visit Information Visit Type Treatment Note Visit Start Time 08:15 Visit Stop Time 08:55 Total Visit Minutes 40 Visit Number 10 PT-OP-B Current Condition Start: 02/15/20 07:21 Freq: Status: Active Protocol: Document 02/16/20 12:55 MB (Rec: 02/16/20 13:29 MB [id number]) Current Condition History of Current Condition Onset Date 02/11/2019 Current Complaints Inconsistent thoracic pain History of Current Condition On 02/11/2019, pt's right foot got stuck in a hole and he fell hard on his tailbone and back. 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 He had severe tailbone pain and back pain after the injury. He thinks he was in shock for a few days. He did not miss work . He finally went to the doctor in March and was found to have a T12 compression fracture. He no longer has tailbone pain but reports 8-10/10 lower thoracic -upper lumbar pain with being up on his feet standing or walking for 10 minutes. Pt reports a shooting pain. He also has dull and nausea pain. Pt drives 1 hour to work and 1 hour back from work 40-70 hours a week. Pt is concerned about weight gain. He works 3rd shift. He does not have pain with driving. He will be changing to 2nd shift. Pt states that he doesn't sleep well. He sleeps on his stomach. He has pain if he lies down more than 6-7 hours a night. He slept on a hard mattress on his back for a few weeks when he had a lot of pain. He also got into hip flexor relaxation position. 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 He does not think this is related to his back and thinks it is related to overuse. Pt has multiple cuts from work . Pt has history of headaches. Prior Treatments and Tests X-ray lumbar spine 04/21/2019: mild anterior wedging T12 new since 01/08/15 and age indeterminate and lumbar spondylosis and diffuse facet arthropathy Treatment Goals Patient/Caregiver Goals To lose weight and get back to exercising, walking and hiking. PT-OP-C Subjective Start: 02/15/20 07:21 Freq: Status: Active Protocol: Document 03/28/20 08:15 MB (Rec: 03/28/20 08:53 MB [id number]) OP-PT Subjective Patient Comments Patient Comments I did my exercises yesterday and I kneaded a lot of bread. That's a lot of core. I took a 30 minute walk yesterday. PT-OP-J Posture/Palpation/Skin Start: 02/15/20 07:21 Freq: Status: Active Protocol: Document 02/16/20 12:55 MB (Rec: 02/16/20 16:09 MB [id number]) Posture Evaluation Comments Posture Comments Standing posture: increased body mass, decreased cervical lordosis, Dowager's hump, some lipoma areas chest, left arm, back noted, increased lumbar lordosis, anterior tilt pelvis , pelvic obliquities with right iliac crest higher than the left and pt reporting tenderness to touch over left iliac crest that might be related to old lipoma removal. Tension and pain over left T12 vertebra and ribs compared to the right, pt wears Randall boots and has increased resting toe extension greater on the right foot and increased right Naya angle compared to the left. Pt reports unstable ankles, greater on the left and frequent rolling of his ankles. Range of spine with movements: decreased SB B with most movement at shoulders and decreased movement T12 area, forward flexion decreases with repetition and pt reports that he prefers extension positions. Sitting thoracic rotation with left rotation 25 % less than the right. PT-OP-K Range of Motion Start: 02/15/20 07:21 Freq: Status: Active Protocol: Document 02/16/20 12:55 MB (Rec: 02/16/20 16:09 MB [id number]) Shoulder Goniometric Range of Motion Shoulder B Shoulder ROM WFL Yes Testing Position Sitting Elbow/Forearm Range of Motion Elbow/Forearm B Elbow/Forearm ROM WFL Yes ROM Testing Position Sitting Comments Hypermobility into extension left elbow PT-OP-M Strength Start: 02/15/20 07:21 Freq: Status: Active Protocol: Document 02/16/20 12:55 MB (Rec: 02/16/20 16:09 MB [id number]) Shoulder Strength Shoulder Manual Muscle Testing Left Flexion 4 Good Abduction (C5) 5 Normal External Rotation 4 Good Internal Rotation 4 Good Right Flexion 4 Good Abduction (C5) 5 Normal External Rotation 5 Normal Internal Rotation 5 Normal Elbow/Forearm Strength Elbow and Forearm Manual Muscle Testing Left Flexion (C6) 5 Normal Extension (C7) 5 Normal Pronation 5 Normal Supination 5 Normal Right Flexion (C6) 5 Normal Extension (C7) 5 Normal Pronation 5 Normal Supination 5 Normal Hip Strength Hip Manual Muscle Testing Left Flexion (L2) 4 Good Abduction 4 Good Right Flexion (L2) 5 Normal Abduction 5 Normal Knee Strength Knee Manual Muscle Testing B Extension (L3) 5 Normal PT-OP-Q Treatments Start: 02/15/20 07:21 Freq: Status: Active Protocol: Document 03/28/20 08:15 MB (Rec: 03/28/20 08:53 MB [id number]) Cardio Equipment Upper Body Ergometer (UBE) Duration (Minutes) 10 Other 1' forward and 1' backward rotations Manual Therapy Treatment Other Other Manual Treatments B side lying QL stretch position, gentle rib recoil and STM QL, paraspinals, oblique attachment and TFL and pt responds very well to treatment PT-OP-T Assessment and Plan Start: 02/15/20 07:21 Freq: Status: Active Protocol: Document 03/28/20 08:15 MB (Rec: 03/28/20 08:53 MB [id number]) Physical Therapy Assessment Rehab Potential Rehabilitation Potential Good Evaluation Complexity Number of Personal Factors/Comorbidities 1-2 Number of Body Systems Impaired 1-2 Clinical Presentation at Evaluation Stable Impairments Impairments Activity Tolerance,Balance, Functional Activities, Functional Mobility,Integument ,Pain,Posture,ROM,Soft Tissue Mobility,Strength Goals 5 Usp Goal (LTG) Pt will hike for 1 hour with water pack with reports of no more than 1/10 pain by 05/27/20 . 4 Usp Goal (LTG) Pt will report an overall 75% improvement in pain to improve quality of life by 05/27/20. 03/26/2020: Pt reports an overall 50% improvement in pain since starting PT. He reports that his muscles get tired throughout the day and would like for his core to support him throughout the day without pain. LTG Duration 8 weeks 3 Branch Service Associate Goal (LTG) Pt will present with improved B shoulder flexion and left hip flexion and abduction strength to 5/5 to improve functional strength by 05/27/20 . 03/26/2020: B shoulder flexion 5/5, B hip flexion and right hip abduction 5/5 and left hip flexion 4/5 LTG Duration 8 weeks 2 Usp Goal (LTG) Pt will perform progressive HEP with I including postural, strengthening, flexibility, body mechanics, ergonomic, breathing and relaxation exercises to improve overall posture, pain and functional strength by 05/27/20. 03/26/2020: Pt is performing exercises and would like to revise HEP. LTG Duration 8 weeks 1 Usp Goal (LTG) Pt will present with improved Oswestry score to reflect no more than 20% impairment to improve functional activities by 05/27/20. 03/26/2020: Oswestry score reflects 32% impairment. This is a 14% improvement since starting PT. Pt can now put on his shoes without pain. Pt is able to sleep about 6.5 hours . LTG Duration 8 weeks Assessment Summary Assessment Pt performs UBE today without pain and he tolerates manual work for QL and he presents with improved fascial mobility afterwards. Physical Therapy Plan Frequency and Duration Frequency of Treatment 2x/Week Duration of Treatment 8 weeks Plan of Care Start Date 03/26/20 Plan of Care End Date 05/27/20 Therapeutic Interventions Therapeutic Interventions Balance Training,Canalithic Repositioning,Coordination Training,Home Exercise Program ,Joint Mobilizations,Manual Therapy,Neuromuscular Re- education,Patient/Caregiver Education,Self-Care/Home Management,Sensory Integration ,Soft Tissue Mobilization, Taping,Therapeutic Activities, Therapeutic Exercises Modalities Cold Pack/Ice Massage,Electric Stimulation,Hot Packs, Ultrasound Next Visit Focus/Plan Next Note Type Treatment Note Next Visit Plan Ongoing manual work, bridge, thoracic mobility in sitting, consider hip strengthening in hook lying vs standing, further exercises over therapy ball
--- NOTE | 2020-04-04 14:34 | PT.OTN ---
Current Diagnoses Wedge compression fracture of T11-T12 vertebra, initial encounter for closed fracture (04/04/20) Physical Therapy Treatment Note PT-OP-A Visit Information Start: 02/15/20 07:21 Freq: Status: Active Protocol: Document 04/04/20 13:50 MB (Rec: 04/04/20 14:32 MB [id number]) Out-Patient Physical Therapy Visit Information Visit Information Visit Type Treatment Note Visit Start Time 13:50 Visit Stop Time 14:30 Total Visit Minutes 40 Visit Number 11 PT-OP-B Current Condition Start: 02/15/20 07:21 Freq: Status: Active Protocol: Document 02/16/20 12:55 MB (Rec: 02/16/20 13:29 MB [id number]) Current Condition History of Current Condition Onset Date 02/11/2019 Current Complaints Inconsistent thoracic pain History of Current Condition On 02/11/2019, pt's right foot got stuck in a hole and he fell hard on his tailbone and back. 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 He had severe tailbone pain and back pain after the injury. He thinks he was in shock for a few days. He did not miss work . He finally went to the doctor in March and was found to have a T12 compression fracture. He no longer has tailbone pain but reports 8-10/10 lower thoracic -upper lumbar pain with being up on his feet standing or walking for 10 minutes. Pt reports a shooting pain. He also has dull and nausea pain. Pt drives 1 hour to work and 1 hour back from work 40-70 hours a week. Pt is concerned about weight gain. He works 3rd shift. He does not have pain with driving. He will be changing to 2nd shift. Pt states that he doesn't sleep well. He sleeps on his stomach. He has pain if he lies down more than 6-7 hours a night. He slept on a hard mattress on his back for a few weeks when he had a lot of pain. He also got into hip flexor relaxation position. 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 He has occ weak rib stiffener and heel dipper once a month and this has been going on for 10 years. He does not think this is related to his back and thinks it is related to overuse. Pt has multiple cuts from work . Pt has history of headaches. Prior Treatments and Tests X-ray lumbar spine 04/21/2019: mild anterior wedging T12 new since 01/08/15 and age indeterminate and lumbar spondylosis and diffuse facet arthropathy Treatment Goals Patient/Caregiver Goals To lose weight and get back to exercising, walking and hiking. PT-OP-C Subjective Start: 02/15/20 07:21 Freq: Status: Active Protocol: Document 04/04/20 13:50 MB (Rec: 04/04/20 14:32 MB [id number]) OP-PT Subjective Patient Comments Patient Comments I have to change my appointment next week. PT-OP-J Posture/Palpation/Skin Start: 02/15/20 07:21 Freq: Status: Active Protocol: Document 02/16/20 12:55 MB (Rec: 02/16/20 16:09 MB [id number]) Posture Evaluation Comments Posture Comments Standing posture: increased body mass, decreased cervical lordosis, Dowager's hump, some lipoma areas chest, left arm, back noted, increased lumbar lordosis, anterior tilt pelvis , pelvic obliquities with right iliac crest higher than the left and pt reporting tenderness to touch over left iliac crest that might be related to old lipoma removal. Tension and pain over left T12 vertebra and ribs compared to the right, pt wears Randall boots and has increased resting toe extension greater on the right foot and increased right Naya angle compared to the left. Pt reports unstable ankles, greater on the left and frequent rolling of his ankles. Range of spine with movements: decreased SB B with most movement at shoulders and decreased movement T12 area, forward flexion decreases with repetition and pt reports that he prefers extension positions. Sitting thoracic rotation with left rotation 25 % less than the right. PT-OP-K Range of Motion Start: 02/15/20 07:21 Freq: Status: Active Protocol: Document 02/16/20 12:55 MB (Rec: 02/16/20 16:09 MB [id number]) Shoulder Goniometric Range of Motion Shoulder B Shoulder ROM WFL Yes Testing Position Sitting Elbow/Forearm Range of Motion Elbow/Forearm B Elbow/Forearm ROM WFL Yes ROM Testing Position Sitting Comments Hypermobility into extension left elbow PT-OP-M Strength Start: 02/15/20 07:21 Freq: Status: Active Protocol: Document 02/16/20 12:55 MB (Rec: 02/16/20 16:09 MB [id number]) Shoulder Strength Shoulder Manual Muscle Testing Left Flexion 4 Good Abduction (C5) 5 Normal External Rotation 4 Good Internal Rotation 4 Good Right Flexion 4 Good Abduction (C5) 5 Normal External Rotation 5 Normal Internal Rotation 5 Normal Elbow/Forearm Strength Elbow and Forearm Manual Muscle Testing Left Flexion (C6) 5 Normal Extension (C7) 5 Normal Pronation 5 Normal Supination 5 Normal Right Flexion (C6) 5 Normal Extension (C7) 5 Normal Pronation 5 Normal Supination 5 Normal Hip Strength Hip Manual Muscle Testing Left Flexion (L2) 4 Good Abduction 4 Good Right Flexion (L2) 5 Normal Abduction 5 Normal Knee Strength Knee Manual Muscle Testing B Extension (L3) 5 Normal PT-OP-Q Treatments Start: 02/15/20 07:21 Freq: Status: Active Protocol: Document 04/04/20 13:50 MB (Rec: 04/04/20 14:32 MB [id number]) Cardio Equipment Upper Body Ergometer (UBE) Duration (Minutes) 10 Other 1' forward and 1' backward Manual Therapy Treatment Other Other Manual Treatments Pt prone: rib recoil, PA thoracic mobs grade III-IV and scapular mobs, positional release thoracic paraspinals PT-OP-T Assessment and Plan Start: 02/15/20 07:21 Freq: Status: Active Protocol: Document 04/04/20 13:50 MB (Rec: 04/04/20 14:32 MB [id number]) Physical Therapy Assessment Rehab Potential Rehabilitation Potential Good Evaluation Complexity Number of Personal Factors/Comorbidities 1-2 Number of Body Systems Impaired 1-2 Clinical Presentation at Evaluation Stable Impairments Impairments Activity Tolerance,Balance, Functional Activities, Functional Mobility,Integument ,Pain,Posture,ROM,Soft Tissue Mobility,Strength Goals 5 Longterm Goal (LTG) Pt will hike for 1 hour with water pack with reports of no more than 1/10 pain by 05/27/20 . 4 Longterm Goal (LTG) Pt will report an overall 75% improvement in pain to improve quality of life by 05/27/20. 03/26/2020: Pt reports an overall 50% improvement in pain since starting PT. He reports that his muscles get tired throughout the day and would like for his core to support him throughout the day without pain. LTG Duration 8 weeks 3 Textile Finisher Goal (LTG) Pt will present with improved B shoulder flexion and left hip flexion and abduction strength to 5/5 to improve functional strength by 05/27/20 . 03/26/2020: B shoulder flexion 5/5, B hip flexion and right hip abduction 5/5 and left hip flexion 4/5 LTG Duration 8 weeks 2 Textile Finisher Goal (LTG) Pt will perform progressive HEP with I including postural, strengthening, flexibility, body mechanics, ergonomic, breathing and relaxation exercises to improve overall posture, pain and functional strength by 05/27/20. 03/26/2020: Pt is performing exercises and would like to revise HEP. LTG Duration 8 weeks 1 Longterm Goal (LTG) Pt will present with improved Oswestry score to reflect no more than 20% impairment to improve functional activities by 05/27/20. 03/26/2020: Oswestry score reflects 32% impairment. This is a 14% improvement since starting PT. Pt can now put on his shoes without pain. Pt is able to sleep about 6.5 hours . LTG Duration 8 weeks Assessment Summary Assessment Pt reports ongoing spot of tension and so treated today and pt responds well to treatment. Con't progression as needed. Physical Therapy Plan Frequency and Duration Frequency of Treatment 2x/Week Duration of Treatment 8 weeks Plan of Care Start Date 03/26/20 Plan of Care End Date 05/27/20 Therapeutic Interventions Therapeutic Interventions Balance Training,Canalithic Repositioning,Coordination Training,Home Exercise Program ,Joint Mobilizations,Manual Therapy,Neuromuscular Re- education,Patient/Caregiver Education,Self-Care/Home Management,Sensory Integration ,Soft Tissue Mobilization, Taping,Therapeutic Activities, Therapeutic Exercises Modalities Cold Pack/Ice Massage,Electric Stimulation,Hot Packs, Ultrasound Next Visit Focus/Plan Next Note Type Treatment Note Next Visit Plan Ongoing manual work, bridge, thoracic mobility in sitting for QL and rotation, consider hip strengthening in hook lying vs standing, further exercises over therapy ball
--- NOTE | 2020-04-09 15:05 | PT.OTN ---
Current Diagnoses Wedge compression fracture of T11-T12 vertebra, initial encounter for closed fracture (04/09/20) Physical Therapy Treatment Note PT-OP-A Visit Information Start: 02/15/20 07:21 Freq: Status: Active Protocol: Document 04/09/20 14:18 MB (Rec: 04/09/20 14:58 MB [id number]) Out-Patient Physical Therapy Visit Information Visit Information Visit Type Treatment Note Visit Start Time 14:18 Visit Stop Time 15:00 Total Visit Minutes 42 Visit Number 12 PT-OP-B Current Condition Start: 02/15/20 07:21 Freq: Status: Active Protocol: Document 02/16/20 12:55 MB (Rec: 02/16/20 13:29 MB [id number]) Current Condition History of Current Condition Onset Date 02/11/2019 Current Complaints Inconsistent thoracic pain History of Current Condition On 02/11/2019, pt's right foot got stuck in a hole and he fell hard on his tailbone and back. 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 He had severe tailbone pain and back pain after the injury. He thinks he was in shock for a few days. He did not miss work . He finally went to the doctor in March and was found to have a T12 compression fracture. He no longer has tailbone pain but reports 8-10/10 lower thoracic -upper lumbar pain with being up on his feet standing or walking for 10 minutes. Pt reports a shooting pain. He also has dull and nausea pain. Pt drives 1 hour to work and 1 hour back from work 40-70 hours a week. Pt is concerned about weight gain. He works 3rd shift. He does not have pain with driving. He will be changing to 2nd shift. Pt states that he doesn't sleep well. He sleeps on his stomach. He has pain if he lies down more than 6-7 hours a night. He slept on a hard mattress on his back for a few weeks when he had a lot of pain. He also got into hip flexor relaxation position. 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 He does not think this is related to his back and thinks it is related to overuse. Pt has multiple cuts from work . Pt has history of headaches. Prior Treatments and Tests X-ray lumbar spine 04/21/2019: mild anterior wedging T12 new since 01/08/15 and age indeterminate and lumbar spondylosis and diffuse facet arthropathy Treatment Goals Patient/Caregiver Goals To lose weight and get back to exercising, walking and hiking. PT-OP-C Subjective Start: 02/15/20 07:21 Freq: Status: Active Protocol: Document 04/09/20 14:18 MB (Rec: 04/09/20 14:58 MB [id number]) OP-PT Subjective Patient Comments Patient Comments I'm doing pretty good. Pt describes long history of dreaming, sleep paralysis and sleep walking including cooking full meals. He has not gotten any care for this. PT-OP-J Posture/Palpation/Skin Start: 02/15/20 07:21 Freq: Status: Active Protocol: Document 02/16/20 12:55 MB (Rec: 02/16/20 16:09 MB [id number]) Posture Evaluation Comments Posture Comments Standing posture: increased body mass, decreased cervical lordosis, Dowager's hump, some lipoma areas chest, left arm, back noted, increased lumbar lordosis, anterior tilt pelvis , pelvic obliquities with right iliac crest higher than the left and pt reporting tenderness to touch over left iliac crest that might be related to old lipoma removal. Tension and pain over left T12 vertebra and ribs compared to the right, pt wears Randall boots and has increased resting toe extension greater on the right foot and increased right Naya angle compared to the left. Pt reports unstable ankles, greater on the left and frequent rolling of his ankles. Range of spine with movements: decreased SB B with most movement at shoulders and decreased movement T12 area, forward flexion decreases with repetition and pt reports that he prefers extension positions. Sitting thoracic rotation with left rotation 25 % less than the right. PT-OP-K Range of Motion Start: 02/15/20 07:21 Freq: Status: Active Protocol: Document 02/16/20 12:55 MB (Rec: 02/16/20 16:09 MB [id number]) Shoulder Goniometric Range of Motion Shoulder B Shoulder ROM WFL Yes Testing Position Sitting Elbow/Forearm Range of Motion Elbow/Forearm B Elbow/Forearm ROM WFL Yes ROM Testing Position Sitting Comments Hypermobility into extension left elbow PT-OP-M Strength Start: 02/15/20 07:21 Freq: Status: Active Protocol: Document 02/16/20 12:55 MB (Rec: 02/16/20 16:09 MB [id number]) Shoulder Strength Shoulder Manual Muscle Testing Left Flexion 4 Good Abduction (C5) 5 Normal External Rotation 4 Good Internal Rotation 4 Good Right Flexion 4 Good Abduction (C5) 5 Normal External Rotation 5 Normal Internal Rotation 5 Normal Elbow/Forearm Strength Elbow and Forearm Manual Muscle Testing Left Flexion (C6) 5 Normal Extension (C7) 5 Normal Pronation 5 Normal Supination 5 Normal Right Flexion (C6) 5 Normal Extension (C7) 5 Normal Pronation 5 Normal Supination 5 Normal Hip Strength Hip Manual Muscle Testing Left Flexion (L2) 4 Good Abduction 4 Good Right Flexion (L2) 5 Normal Abduction 5 Normal Knee Strength Knee Manual Muscle Testing B Extension (L3) 5 Normal PT-OP-Q Treatments Start: 02/15/20 07:21 Freq: Status: Active Protocol: Document 04/09/20 14:18 MB (Rec: 04/09/20 14:58 MB [id number]) Cardio Equipment Upper Body Ergometer (UBE) Duration (Minutes) 10 Other 1' forward and 1' backward Therapeutic Exercises Supine Exercises Clam Side bilateral Comments Level 1 band--unilateral and then both together, core tight , 10 reps Bridge Comments 45 sec, pt with decreased hip extension Sitting Exercises QL stretch sitting Side bilateral Comments 3 reps slowly Upper thoracic rotation gently Side bilateral Comments 10 reps gently today PT-OP-T Assessment and Plan Start: 02/15/20 07:21 Freq: Status: Active Protocol: Document 04/09/20 14:18 MB (Rec: 04/09/20 14:58 MB [id number]) Physical Therapy Assessment Rehab Potential Rehabilitation Potential Good Evaluation Complexity Number of Personal Factors/Comorbidities 1-2 Number of Body Systems Impaired 1-2 Clinical Presentation at Evaluation Stable Impairments Impairments Activity Tolerance,Balance, Functional Activities, Functional Mobility,Integument ,Pain,Posture,ROM,Soft Tissue Mobility,Strength Goals 5 Tafe Lecturer Goal (LTG) Pt will hike for 1 hour with water pack with reports of no more than 1/10 pain by 05/27/20 . 4 Tafe Lecturer Goal (LTG) Pt will report an overall 75% improvement in pain to improve quality of life by 05/27/20. 03/26/2020: Pt reports an overall 50% improvement in pain since starting PT. He reports that his muscles get tired throughout the day and would like for his core to support him throughout the day without pain. LTG Duration 8 weeks 3 Tafe Lecturer Goal (LTG) Pt will present with improved B shoulder flexion and left hip flexion and abduction strength to 5/5 to improve functional strength by 05/27/20 . 03/26/2020: B shoulder flexion 5/5, B hip flexion and right hip abduction 5/5 and left hip flexion 4/5 LTG Duration 8 weeks 2 Tafe Lecturer Goal (LTG) Pt will perform progressive HEP with I including postural, strengthening, flexibility, body mechanics, ergonomic, breathing and relaxation exercises to improve overall posture, pain and functional strength by 05/27/20. 03/26/2020: Pt is performing exercises and would like to revise HEP. LTG Duration 8 weeks 1 Shelter Goal (LTG) Pt will present with improved Oswestry score to reflect no more than 20% impairment to improve functional activities by 05/27/20. 03/26/2020: Oswestry score reflects 32% impairment. This is a 14% improvement since starting PT. Pt can now put on his shoes without pain. Pt is able to sleep about 6.5 hours . LTG Duration 8 weeks Assessment Summary Assessment Pt reports sleep walking including making full meals and sleep paralysis. Pt is sitting on the ball at home. Physical Therapy Plan Frequency and Duration Frequency of Treatment 2x/Week Duration of Treatment 8 weeks Plan of Care Start Date 03/26/20 Plan of Care End Date 05/27/20 Therapeutic Interventions Therapeutic Interventions Balance Training,Canalithic Repositioning,Coordination Training,Home Exercise Program ,Joint Mobilizations,Manual Therapy,Neuromuscular Re- education,Patient/Caregiver Education,Self-Care/Home Management,Sensory Integration ,Soft Tissue Mobilization, Taping,Therapeutic Activities, Therapeutic Exercises Modalities Cold Pack/Ice Massage,Electric Stimulation,Hot Packs, Ultrasound Next Visit Focus/Plan Next Note Type Treatment Note Next Visit Plan Progress bridge with band around knees, therapy ball stretches and intrascapular and shoulder rotator strengthening with band
--- NOTE | 2020-04-18 14:54 | PT.OTN ---
Current Diagnoses Wedge compression fracture of T11-T12 vertebra, initial encounter for closed fracture (04/18/20) Physical Therapy Treatment Note PT-OP-A Visit Information Start: 02/15/20 07:21 Freq: Status: Active Protocol: Document 04/18/20 13:50 MB (Rec: 04/18/20 14:49 MB [id number]) Out-Patient Physical Therapy Visit Information Visit Information Visit Type Treatment Note Visit Start Time 13:50 Visit Stop Time 14:44 Total Visit Minutes 54 Visit Number 13 PT-OP-B Current Condition Start: 02/15/20 07:21 Freq: Status: Active Protocol: Document 02/16/20 12:55 MB (Rec: 02/16/20 13:29 MB [id number]) Current Condition History of Current Condition Onset Date 02/11/2019 Current Complaints Inconsistent thoracic pain History of Current Condition On 02/11/2019, pt's right foot got stuck in a hole and he fell hard on his tailbone and back. 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 He had severe tailbone pain and back pain after the injury. He thinks he was in shock for a few days. He did not miss work . He finally went to the doctor in March and was found to have a T12 compression fracture. He no longer has tailbone pain but reports 8-10/10 lower thoracic -upper lumbar pain with being up on his feet standing or walking for 10 minutes. Pt reports a shooting pain. He also has dull and nausea pain. Pt drives 1 hour to work and 1 hour back from work 40-70 hours a week. Pt is concerned about weight gain. He works 3rd shift. He does not have pain with driving. He will be changing to 2nd shift. Pt states that he doesn't sleep well. He sleeps on his stomach. He has pain if he lies down more than 6-7 hours a night. He slept on a hard mattress on his back for a few weeks when he had a lot of pain. He also got into hip flexor relaxation position. 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 He does not think this is related to his back and thinks it is related to overuse. Pt has multiple cuts from work . Pt has history of headaches. Prior Treatments and Tests X-ray lumbar spine 04/21/2019: mild anterior wedging T12 new since 01/08/15 and age indeterminate and lumbar spondylosis and diffuse facet arthropathy Treatment Goals Patient/Caregiver Goals To lose weight and get back to exercising, walking and hiking. PT-OP-C Subjective Start: 02/15/20 07:21 Freq: Status: Active Protocol: Document 04/18/20 13:50 MB (Rec: 04/18/20 14:49 MB [id number]) OP-PT Subjective Patient Comments Patient Comments I still get that catch occ in my side. PT-OP-J Posture/Palpation/Skin Start: 02/15/20 07:21 Freq: Status: Active Protocol: Document 02/16/20 12:55 MB (Rec: 02/16/20 16:09 MB [id number]) Posture Evaluation Comments Posture Comments Standing posture: increased body mass, decreased cervical lordosis, Dowager's hump, some lipoma areas chest, left arm, back noted, increased lumbar lordosis, anterior tilt pelvis , pelvic obliquities with right iliac crest higher than the left and pt reporting tenderness to touch over left iliac crest that might be related to old lipoma removal. Tension and pain over left T12 vertebra and ribs compared to the right, pt wears Randall boots and has increased resting toe extension greater on the right foot and increased right Naya angle compared to the left. Pt reports unstable ankles, greater on the left and frequent rolling of his ankles. Range of spine with movements: decreased SB B with most movement at shoulders and decreased movement T12 area, forward flexion decreases with repetition and pt reports that he prefers extension positions. Sitting thoracic rotation with left rotation 25 % less than the right. PT-OP-K Range of Motion Start: 02/15/20 07:21 Freq: Status: Active Protocol: Document 02/16/20 12:55 MB (Rec: 02/16/20 16:09 MB [id number]) Shoulder Goniometric Range of Motion Shoulder B Shoulder ROM WFL Yes Testing Position Sitting Elbow/Forearm Range of Motion Elbow/Forearm B Elbow/Forearm ROM WFL Yes ROM Testing Position Sitting Comments Hypermobility into extension left elbow PT-OP-M Strength Start: 02/15/20 07:21 Freq: Status: Active Protocol: Document 02/16/20 12:55 MB (Rec: 02/16/20 16:09 MB [id number]) Shoulder Strength Shoulder Manual Muscle Testing Left Flexion 4 Good Abduction (C5) 5 Normal External Rotation 4 Good Internal Rotation 4 Good Right Flexion 4 Good Abduction (C5) 5 Normal External Rotation 5 Normal Internal Rotation 5 Normal Elbow/Forearm Strength Elbow and Forearm Manual Muscle Testing Left Flexion (C6) 5 Normal Extension (C7) 5 Normal Pronation 5 Normal Supination 5 Normal Right Flexion (C6) 5 Normal Extension (C7) 5 Normal Pronation 5 Normal Supination 5 Normal Hip Strength Hip Manual Muscle Testing Left Flexion (L2) 4 Good Abduction 4 Good Right Flexion (L2) 5 Normal Abduction 5 Normal Knee Strength Knee Manual Muscle Testing B Extension (L3) 5 Normal PT-OP-Q Treatments Start: 02/15/20 07:21 Freq: Status: Active Protocol: Document 04/18/20 13:50 MB (Rec: 04/18/20 14:49 MB [id number]) Cardio Equipment Upper Body Ergometer (UBE) Duration (Minutes) 10 Other 1' forward and 1' backward Manual Therapy Treatment Other Other Manual Treatments Pt agrees to Counterstrain to assess and treat fascial tension and he presents with tension in the following fascial systems: spinal vein extension, ALL, DPR left. PT treats stacks in the following systems: cervical to lumbar ALL and spinal vein extension. Pt con't with tension at right facial nerve but did not tolerate treatment previous Counterstrain trial. PT-OP-T Assessment and Plan Start: 02/15/20 07:21 Freq: Status: Active Protocol: Document 04/18/20 13:50 MB (Rec: 04/18/20 14:49 MB [id number]) Physical Therapy Assessment Rehab Potential Rehabilitation Potential Good Evaluation Complexity Number of Personal Factors/Comorbidities 1-2 Number of Body Systems Impaired 1-2 Clinical Presentation at Evaluation Stable Impairments Impairments Activity Tolerance,Balance, Functional Activities, Functional Mobility,Integument ,Pain,Posture,ROM,Soft Tissue Mobility,Strength Goals 5 Fpc Goal (LTG) Pt will hike for 1 hour with water pack with reports of no more than 1/10 pain by 05/27/20 . 4 Fpc Goal (LTG) Pt will report an overall 75% improvement in pain to improve quality of life by 05/27/20. 03/26/2020: Pt reports an overall 50% improvement in pain since starting PT. He reports that his muscles get tired throughout the day and would like for his core to support him throughout the day without pain. LTG Duration 8 weeks 3 Fpc Goal (LTG) Pt will present with improved B shoulder flexion and left hip flexion and abduction strength to 5/5 to improve functional strength by 05/27/20 . 03/26/2020: B shoulder flexion 5/5, B hip flexion and right hip abduction 5/5 and left hip flexion 4/5 LTG Duration 8 weeks 2 Fpc Goal (LTG) Pt will perform progressive HEP with I including postural, strengthening, flexibility, body mechanics, ergonomic, breathing and relaxation exercises to improve overall posture, pain and functional strength by 05/27/20. 03/26/2020: Pt is performing exercises and would like to revise HEP. LTG Duration 8 weeks 1 Fpc Goal (LTG) Pt will present with improved Oswestry score to reflect no more than 20% impairment to improve functional activities by 05/27/20. 03/26/2020: Oswestry score reflects 32% impairment. This is a 14% improvement since starting PT. Pt can now put on his shoes without pain. Pt is able to sleep about 6.5 hours . LTG Duration 8 weeks Assessment Summary Assessment Pt con't to report thoracic discomfort and so Counterstrain to address and pt responds well. He has a small lumpy area right intrascapular area on the rib, ? lipoma. Con't exercise progression and manual work. Physical Therapy Plan Frequency and Duration Frequency of Treatment 2x/Week Duration of Treatment 8 weeks Plan of Care Start Date 03/26/20 Plan of Care End Date 05/27/20 Therapeutic Interventions Therapeutic Interventions Balance Training,Canalithic Repositioning,Coordination Training,Home Exercise Program ,Joint Mobilizations,Manual Therapy,Neuromuscular Re- education,Patient/Caregiver Education,Self-Care/Home Management,Sensory Integration ,Soft Tissue Mobilization, Taping,Therapeutic Activities, Therapeutic Exercises Modalities Cold Pack/Ice Massage,Electric Stimulation,Hot Packs, Ultrasound Next Visit Focus/Plan Next Note Type Treatment Note Next Visit Plan Consider bridge with band around knees, therapy ball stretches and intrascapular and shoulder rotator strengthening with band
--- NOTE | 2020-04-26 13:16 | PT.OTN ---
Current Diagnoses Wedge compression fracture of T11-T12 vertebra, initial encounter for closed fracture (04/26/20) Physical Therapy Treatment Note PT-OP-A Visit Information Start: 02/15/20 07:21 Freq: Status: Active Protocol: Document 04/26/20 12:20 MB (Rec: 04/26/20 13:16 MB [id number]) Out-Patient Physical Therapy Visit Information Visit Information Visit Type Treatment Note Visit Start Time 12:20 Visit Stop Time 13:05 Total Visit Minutes 45 Visit Number 14 PT-OP-B Current Condition Start: 02/15/20 07:21 Freq: Status: Active Protocol: Document 02/16/20 12:55 MB (Rec: 02/16/20 13:29 MB [id number]) Current Condition History of Current Condition Onset Date 02/11/2019 Current Complaints Inconsistent thoracic pain History of Current Condition On 02/11/2019, pt's right foot got stuck in a hole and he fell hard on his tailbone and back. 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 He had severe tailbone pain and back pain after the injury. He thinks he was in shock for a few days. He did not miss work . He finally went to the doctor in March and was found to have a T12 compression fracture. He no longer has tailbone pain but reports 8-10/10 lower thoracic -upper lumbar pain with being up on his feet standing or walking for 10 minutes. Pt reports a shooting pain. He also has dull and nausea pain. Pt drives 1 hour to work and 1 hour back from work 40-70 hours a week. Pt is concerned about weight gain. He works 3rd shift. He does not have pain with driving. He will be changing to 2nd shift. Pt states that he doesn't sleep well. He sleeps on his stomach. He has pain if he lies down more than 6-7 hours a night. He slept on a hard mattress on his back for a few weeks when he had a lot of pain. He also got into hip flexor relaxation position. 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 He does not think this is related to his back and thinks it is related to overuse. Pt has multiple cuts from work . Pt has history of headaches. Prior Treatments and Tests X-ray lumbar spine 04/21/2019: mild anterior wedging T12 new since 01/08/15 and age indeterminate and lumbar spondylosis and diffuse facet arthropathy Treatment Goals Patient/Caregiver Goals To lose weight and get back to exercising, walking and hiking. PT-OP-C Subjective Start: 02/15/20 07:21 Freq: Status: Active Protocol: Document 04/26/20 12:20 MB (Rec: 04/26/20 13:16 MB [id number]) OP-PT Subjective Patient Comments Patient Comments Good! Pt states that he was just waking up yesterday when he missed his appointment. Pt reports that he felt nauseated and poorly after Counterstrain for a couple of hours and then he felt much better and even. The lump pain /tension is no longer there. PT-OP-J Posture/Palpation/Skin Start: 02/15/20 07:21 Freq: Status: Active Protocol: Document 02/16/20 12:55 MB (Rec: 02/16/20 16:09 MB [id number]) Posture Evaluation Comments Posture Comments Standing posture: increased body mass, decreased cervical lordosis, Dowager's hump, some lipoma areas chest, left arm, back noted, increased lumbar lordosis, anterior tilt pelvis , pelvic obliquities with right iliac crest higher than the left and pt reporting tenderness to touch over left iliac crest that might be related to old lipoma removal. Tension and pain over left T12 vertebra and ribs compared to the right, pt wears Randall boots and has increased resting toe extension greater on the right foot and increased right Naya angle compared to the left. Pt reports unstable ankles, greater on the left and frequent rolling of his ankles. Range of spine with movements: decreased SB B with most movement at shoulders and decreased movement T12 area, forward flexion decreases with repetition and pt reports that he prefers extension positions. Sitting thoracic rotation with left rotation 25 % less than the right. PT-OP-K Range of Motion Start: 02/15/20 07:21 Freq: Status: Active Protocol: Document 02/16/20 12:55 MB (Rec: 02/16/20 16:09 MB [id number]) Shoulder Goniometric Range of Motion Shoulder B Shoulder ROM WFL Yes Testing Position Sitting Elbow/Forearm Range of Motion Elbow/Forearm B Elbow/Forearm ROM WFL Yes ROM Testing Position Sitting Comments Hypermobility into extension left elbow PT-OP-M Strength Start: 02/15/20 07:21 Freq: Status: Active Protocol: Document 02/16/20 12:55 MB (Rec: 02/16/20 16:09 MB [id number]) Shoulder Strength Shoulder Manual Muscle Testing Left Flexion 4 Good Abduction (C5) 5 Normal External Rotation 4 Good Internal Rotation 4 Good Right Flexion 4 Good Abduction (C5) 5 Normal External Rotation 5 Normal Internal Rotation 5 Normal Elbow/Forearm Strength Elbow and Forearm Manual Muscle Testing Left Flexion (C6) 5 Normal Extension (C7) 5 Normal Pronation 5 Normal Supination 5 Normal Right Flexion (C6) 5 Normal Extension (C7) 5 Normal Pronation 5 Normal Supination 5 Normal Hip Strength Hip Manual Muscle Testing Left Flexion (L2) 4 Good Abduction 4 Good Right Flexion (L2) 5 Normal Abduction 5 Normal Knee Strength Knee Manual Muscle Testing B Extension (L3) 5 Normal PT-OP-Q Treatments Start: 02/15/20 07:21 Freq: Status: Active Protocol: Document 04/26/20 12:20 MB (Rec: 04/26/20 13:16 MB [id number]) Cardio Equipment Upper Body Ergometer (UBE) Duration (Minutes) 10 Other Alternating forward and backward every minute Therapeutic Exercises Other Exercises Verbally reviewed HEP at d/c Comments Performed this today Self-Care/Home Management Treatment Activities Self-Care/Home Management Activities Ed pt on con't HEP exercises frequently for flexibilty including breathing, sitting on therapy ball, core strengthening and hiking in the [place]. Ed on benefits of PT for knee and foot in the future if needed, careful with body mechanics for lifting and hiking with water pack in order to maintain thoracic mobility and no pain, ongoing ed about fascia and Fascial Counterstrain and theory behind it and how body is a whole matrix as far as protective posturing and fascial tension PT-OP-T Assessment and Plan Start: 02/15/20 07:21 Freq: Status: Active Protocol: Document 04/26/20 12:20 MB (Rec: 04/26/20 13:16 MB [id number]) Physical Therapy Assessment Rehab Potential Rehabilitation Potential Good Evaluation Complexity Number of Personal Factors/Comorbidities 1-2 Number of Body Systems Impaired 1-2 Clinical Presentation at Evaluation Stable Impairments Impairments Activity Tolerance,Balance, Functional Activities, Functional Mobility,Integument ,Pain,Posture,ROM,Soft Tissue Mobility,Strength Goals 5 Rn Post Partum Goal (LTG) Pt will hike for 1 hour with water pack with reports of no more than 1/10 pain by 05/27/20 . 04/26/20: Pt has hiked 40 minutes to 1 hour without water pack with no pain in his back. LTG Duration Met 4 Rn Post Partum Goal (LTG) Pt will report an overall 75% improvement in pain to improve quality of life by 05/27/20. 04/26/20: Pt reports that he is 100% better as far as pain since starting PT. He has no more back spasms. LTG Duration Met 3 Alf Goal (LTG) Pt will present with improved B shoulder flexion and left hip flexion and abduction strength to 5/5 to improve functional strength by 05/27/20 . 04/26/20: B shoulder flexion 5/ 5, B hip flexion and abduction 5/5 today LTG Duration Met 2 Rn Post Partum Goal (LTG) Pt will perform progressive HEP with I including postural, strengthening, flexibility, body mechanics, ergonomic, breathing and relaxation exercises to improve overall posture, pain and functional strength by 05/27/20. 04/26/20: Pt is performing HEP with I. LTG Duration Met 1 Rn Post Partum Goal (LTG) Pt will present with improved Oswestry score to reflect no more than 20% impairment to improve functional activities by 05/27/20. 04/26/20: Oswestry LBP score reflects 4% impairment LTG Duration Met Assessment Summary Assessment Pt reports he has no more thoracic discomfort and is doing well. He is having some left sided knee pain from a tear and may follow-up later about that. Pt has met all PT goals since starting PT. These include strength, pain, HEP and Oswestry goals. Counterstrain was very helpful to him last treatment. He is ready to d/c PT. Will d/c PT. Physical Therapy Plan Frequency and Duration Frequency of Treatment 2x/Week Duration of Treatment 8 weeks Plan of Care Start Date 03/26/20 Plan of Care End Date 05/27/20 Therapeutic Interventions Therapeutic Interventions Balance Training,Canalithic Repositioning,Coordination Training,Home Exercise Program ,Joint Mobilizations,Manual Therapy,Neuromuscular Re- education,Patient/Caregiver Education,Self-Care/Home Management,Sensory Integration ,Soft Tissue Mobilization, Taping,Therapeutic Activities, Therapeutic Exercises Modalities Cold Pack/Ice Massage,Electric Stimulation,Hot Packs, Ultrasound
== END 2020-04-30 14:54 ==
LOC: PHYS 12:15
PROVIDERS: PCP Internal Medicine; Referring Provider Internal Medicine; Visit Provider Internal Medicine
DX: S22.080A Wedge compression fracture of T11-T12 vertebra, initial encounter for closed fracture (principal)
CPT/HCPCS: 97110; 97140; 97161; 97535

== ENCOUNTER → 2020-06-29 10:00 | Outpatient (CLI) | payer OTHER, SELFPAY ==
[2020-06-29] MEDS: COVID-19 VACC #1, MRNA(MOD) 100 MCG/0.5 ML VIAL IM (10:05)
== END ==
PROVIDERS: PCP Internal Medicine; Visit Provider Internal Medicine
DX: Z23 Encounter for immunization (principal)
CPT/HCPCS: 0011A; 91301

== ENCOUNTER → 2020-07-27 09:03 | Outpatient (CLI) | payer OTHER, SELFPAY ==
[2020-07-27] MEDS: COVID-19 VACC #2, MRNA(MOD) 100 MCG/0.5 ML VIAL IM (09:08)
== END ==
PROVIDERS: PCP Internal Medicine; Visit Provider Internal Medicine
DX: Z23 Encounter for immunization (principal)
CPT/HCPCS: 0012A; 91301

== ENCOUNTER → 2020-08-06 21:40 | Outpatient (ROUT) | payer OTHER, SELFPAY ==
[2020-08-06 22:18] LABS: HEMOLYSIS < 15 (0-50)
[2020-08-06 22:25] LABS: Aspartate Aminotransferase 22 IU/L (17-59); BUN Creatinine Ratio 19.8 (6-22); Blood Urea Nitrogen 16 mg/dL (9-20); Calcium 9.6 mg/dL (8.4-10.2); Carbon Dioxide 27 mmol/L (22-32); Chloride 104 mmol/L (98-107); Cholesterol 275 mg/dL (140-199); Estimated Glomerular Filt Rate > 60.0 mL/min (>60); Glucose 103 mg/dL (70-100); HDL Cholesterol 43 mg/dL (40-60); LDL Cholesterol Calculated 206 mg/dL (<100); Potassium 4.6 mmol/L (3.4-5.1); Sodium 139 mmol/L (137-145); Triglycerides 131 mg/dL (35-150)
[2020-08-07 08:36] LABS: Prostate Specific Antigen 1.61 ng/mL (0.10-4.00)
== END ==
PROVIDERS: PCP Internal Medicine; Visit Provider Internal Medicine
DX: E78.2 Mixed hyperlipidemia (principal); Z00.00 Encounter for general adult medical examination without abnormal findings
CPT/HCPCS: 80048; 80061; 84153; 84450

== ENCOUNTER 2021-01-29 22:06 | Emergency (ER) | payer OTHER, SELFPAY ==
[2021-01-29 22:10] VITALS: BP 163/98; PULSE 75; RESP 18; TEMP 36.6; O2SAT 96; BMI 34.7
--- NOTE | 2021-01-30 00:55 | ED_ITS ---
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 He describes no fevers there is no obvious injuries that he recalls. There are no skin changes or rashes and he has no limitations to range of motion or strength in that upper extremity. Related Data Allergies Allergy/AdvReac Type Severity Reaction Status Date / Time No Known Drug Allergies Allergy Verified 01/29/21 22:15 Review of Systems Review of Systems Narrative: Remainder of complete review of systems is otherwise unremarkable except for that included in the HPI. Patient History Medical History Lipoma of anterior chest wall No significant past medical history Subcutaneous mass Surgical History History of colonoscopy Status post excision of lipoma Family History Father Lymphoma Social History marital status: household members: spouse occupational status: employed Smoking Status: Never smoker alcohol intake: never substance use type: does not use Smoking Status: Never smoker alcohol intake frequency: 0-2 drinks per day Substance Use Type: does not use Exam Narrative Exam Narrative: General: Alert appropriate in no acute distress Respiratory: Able to speak in full sentences, no obvious respiratory distress Skin: No obvious rashes, warm and dry Neurologic: Grossly intact no obvious asymmetries or abnormalities Psych: appropriate insight and affect, cooperative Extremity: He has no reproducible tenderness with palpation or manipulation of his neck, no tenderness into the trapezius muscle on the right. Right shoulder exam is benign with no swelling and no tenderness through full range of motion with normal in internal and external rotation. With palpation of the bicipital insertion tendon and flexing that muscle his pain is completely reproduced. He has no suggestion of skin infection or deeper abscess. Full range of motion at the elbow without any tenderness and there are no abnormalities to the hand. Initial Vital Signs Initial Vital Signs: Vital Signs Temperature 97.9 F 01/29/21 22:10 Pulse Rate 75 01/29/21 22:10 Respiratory Rate 18 01/29/21 22:10 Blood Pressure 163/98 H 01/29/21 22:10 Pulse Oximetry 96 01/29/21 22:10 Course Vital Signs Vital signs: Vital Signs - 8 hr 01/29/21 22:10 Temperature 97.9 F Pulse Rate 75 Respiratory Rate 18 Blood Pressure 163/98 H Pulse Oximetry 96 MDM - Extremity (Nontraumatic) MDM Narrative Medical decision making narrative: 55-year-old gentleman with acute onset of pinching sensation knee upper right arm at 11:00 a.m. today. It has continued throughout the day with minor paresthesias the comes in for further evaluation. Exam suggests bicipital insertion tendinitis. I do not suspect of bicipital rupture there is no evidence of infection or abscess. There is no injury pain or tenderness to the shoulder or the elbow and no neck pain or radicular findings. All of these reviewed with patient recommended ibuprofen and Tylenol and a bit of time and follow up if symptoms worsen or change. He is safe for [facility] discharge Discharge Plan Departure Patient Disposition: Home Clinical Impression: Biceps tendinitis of right shoulder Instructions: DI for Tendinitis Activity Restrictions/Additional Instructions: Thank you for coming in today Your clinical exam suggests that you are developing a bicipital tendinitis. There is no evidence for muscle tear, joint infection, skin infection or deeper abscess. Typically once you get something irritated, it is going to take a couple of days to improve and the 2nd day is frequently worse. Using 400 mg of ibuprofen (2 [id number] pills) and 1 Tylenol every 6 hours can be very helpful in controlling pain. You can also try ice to the upper arm. If you have worsening symptoms or develops new findings, please feel free to return to the ER Referrals: Sahil Piper MD [Primary Care Provider] -
== END 2021-01-30 01:12 | disposition home or self-care (01) ==
PROVIDERS: Emergency Provider Emergency Medicine; PCP Internal Medicine
DX: M75.21 Bicipital tendinitis, right shoulder (principal)
CPT/HCPCS: 99281

== ENCOUNTER → 2022-03-14 09:22 | Outpatient (CLI) | payer OTHER, SELFPAY ==
[2022-03-14 10:12] LABS: Hematocrit 44.1 % (41-53); Hemoglobin 15.1 g/dL (13.5-17.5); Mean Corpuscular HGB Conc 34.3 % (30-36); Mean Corpuscular Hemoglobin 30.3 PG (26-34); Mean Corpuscular Volume 88.2 fL (80-100); Platelet Count 263 X10^3/uL (150-400); Red Cell Distribution Width 14.2 % (11.6-14.8); White Blood Cell Count 7.4 X10^3/uL (4.5-11.0)
[2022-03-14 11:11] LABS: TSH w/ Reflex to FT4 0.82 uIU/mL (0.47-4.68)
[2022-03-14 11:24] LABS: Alanine Aminotransferase 24 IU/L (<50); Albumin 4.3 g/dL (3.5-5.0); Albumin Globulin Ratio 1.3 (1.0-2.8); Alkaline Phosphatase 76 U/L (38-126); Aspartate Aminotransferase 20 IU/L (17-59); BUN Creatinine Ratio 15.9 (6-22); Bilirubin Total 1.1 mg/dL (0.2-1.3); Blood Urea Nitrogen 14 mg/dL (9-20); Calcium 9.3 mg/dL (8.4-10.2); Carbon Dioxide 26 mmol/L (22-32); Chloride 103 mmol/L (98-107); Cholesterol 229 mg/dL (140-199); Estimated Glomerular Filt Rate > 60 mL/min (>60); Globulin 3.2 g/dL (1.7-4.1); Glucose 97 mg/dL (70-100); HDL Cholesterol 37 mg/dL (40-60); HEMOLYSIS < 15 (0-50); LDL Cholesterol Calculated 160 mg/dL (<100); Potassium 4.4 mmol/L (3.4-5.1); Sodium 138 mmol/L (137-145); Total Protein 7.5 g/dL (6.3-8.2); Triglycerides 158 mg/dL (35-150)
== END ==
PROVIDERS: PCP Internal Medicine; Referring Provider Internal Medicine; Visit Provider Internal Medicine
DX: E78.2 Mixed hyperlipidemia (principal); Z00.00 Encounter for general adult medical examination without abnormal findings; Z86.010 Personal history of colon polyps; Z87.81 Personal history of (healed) traumatic fracture
CPT/HCPCS: 36415; 80053; 80061; 84153; 84443; 85027

== ENCOUNTER → 2022-05-15 09:53 | Outpatient (CLI) | payer OTHER, SELFPAY ==
[2022-05-15 10:42] LABS: Influenza A - CEPHEID Flu A NEGATIVE (NEGATIVE); Influenza B - CEPHEID Flu B NEGATIVE (NEGATIVE); Respiratory Syncytial Virus Negative (Negative)
[2022-05-15 11:53] LABS: COVID-19 CEPHEID 4-PLEX PCR POSITIVE (Negative)
== END ==
PROVIDERS: PCP Internal Medicine; Visit Provider Student in an Organized Health Care Education/Training Program
DX: U07.1 COVID-19 (principal); R05.1 Acute cough
CPT/HCPCS: 0241U

== ENCOUNTER → 2022-05-15 10:28 | Outpatient (CLI) | payer OTHER, SELFPAY ==
--- NOTE | 2022-05-15 10:29 | DI.RAD.S_ITS ---
PROCEDURE: XR CHEST 2V INDICATIONS: 4 weeks cough, SHOB, low fevers TECHNIQUE: 2 views of the chest were acquired. COMPARISON: [facility], , CHEST 2 VIEW, 07/24/2017, 15:40. FINDINGS: Surgical changes and devices: None. Lungs and pleura: Lungs are clear. No pleural effusions or pneumothorax. Mediastinum: Mediastinal contours are normal. Heart size is normal. Bones and chest wall: No suspicious bony abnormalities. Soft tissues appear unremarkable. IMPRESSION: No acute process. Dictated by: Abdullahi Russell M.D. on 05/15/2022 at 10:45 Approved by: Abdullahi Russell M.D. on 05/15/2022 at 10:46
== END ==
PROVIDERS: PCP Internal Medicine; Referring Provider Student in an Organized Health Care Education/Training Program; Visit Provider Student in an Organized Health Care Education/Training Program
DX: U07.1 COVID-19 (principal); R05.1 Acute cough; R50.9 Fever, unspecified
CPT/HCPCS: 0241U; 71046

== ENCOUNTER → 2022-05-30 13:06 | Outpatient (CLI) | payer OTHER, SELFPAY | PROVIDERS: PCP Internal Medicine; Visit Provider Nurse Practitioner Family | DX: J02.9 Acute pharyngitis, unspecified (principal) | CPT/HCPCS: 87070 ==

== ENCOUNTER → 2023-12-28 09:58 | Outpatient (CLI) | payer OTHER, SELFPAY ==
--- NOTE | 2023-12-28 10:15 | DI.US.S_ITS ---
PROCEDURE: US SCROTUM INDICATIONS: worsening/acute left side testicular pain/swelling TECHNIQUE: Real-time scanning was performed of the scrotum and testicles, with image documentation. Color and pulse Doppler interrogation was performed of both testicles. COMPARISON: None. FINDINGS: Right: Testicle is normal in size at 4.9 x 3.1 x 2.3 cm, and homogenous in echotexture. Epididymis is normal in overall size and morphology. No hydrocele or varicoceles. Overlying scrotal skin is normal in thickness. Scrotal wall measures 0.3 cm. Left: Testicle is normal in size at 4.4 x 3.3 x 2.2 cm, and homogeneous in echotexture. Epididymis is normal in overall size. Left epididymal mass measuring 1.7 x 1.4 x 0.8 cm. Heterogeneous with possible cystic component. There appears to be internal vascularity. No hydrocele or varicoceles. Scrotal wall measures 0.6 cm. Doppler: Color and pulse Doppler demonstrate normal and symmetric arterial flow in both testicles. No bilateral inguinal hernia. IMPRESSION: 1. Left epididymal mass measuring 1.7 cm. 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 Sperm granuloma or sequelae of infectious process are also also diagnostic considerations. -Urology consultation and short-term follow-up ultrasound would be helpful. 2. Minimal thickening of the left scrotum compared to the right. 3. No hydrocele. No varicocele. No inguinal hernia. Dictated by: Shady Ramos M.D. on 12/28/2023 at 11:49 Approved by: Shady Ramos M.D. on 12/28/2023 at 11:58
== END ==
LOC: US 09:58
PROVIDERS: PCP Internal Medicine; Referring Provider Family Medicine; Visit Provider Family Medicine
DX: N50.819 Testicular pain, unspecified (principal); N50.89 Other specified disorders of the male genital organs
CPT/HCPCS: 76870

== ENCOUNTER → 2024-02-26 07:30 | Outpatient (CLI) | payer OTHER, SELFPAY ==
--- NOTE | 2024-02-26 07:31 | DI.US.S_ITS ---
PROCEDURE: US SCROTUM INDICATIONS: FOLLOW-UP EPIDIDYMITITS TECHNIQUE: Real-time scanning was performed of the scrotum and testicles, with image documentation. Color and pulse Doppler interrogation was performed of both testicles. COMPARISON: [facility], CT, CT ABDOMEN PELVIS WO/W CON, 02/26/2024, 8:08. [facility], US, US SCROTUM, 12/28/2023, 10:12. FINDINGS: Right: Testicle is normal in size at 4.5 x 2.3 x 3.1 cm, and homogenous in echotexture. Epididymis is heterogenous and measures 1.3 centimeters at the epididymal head. No hydrocele or varicoceles. Overlying scrotal skin is normal in thickness. Left: Testicle is normal in size at 4.4 x 2.1 x 2.7 cm, and homogeneous in echotexture. Epididymis is heterogenous and measures 1.4 centimeters at the epididymal head. The previously noted mass at the epididymal body is no longer identified. No hydrocele or varicoceles. Overlying scrotal skin is normal in thickness. Doppler: Color and pulse Doppler demonstrate normal and symmetric arterial flow in both testicles. IMPRESSION: Heterogenous appearance of the epididymis bilaterally, with interval resolution of the left epididymal body mass. These findings would be compatible with the clinical history of resolving epididymitis status post antibiotic treatment. Dictated by: Sarwat Cain M.D. on 02/26/2024 at 9:43 Approved by: Sarwat Cain M.D. on 02/26/2024 at 9:50
--- NOTE | 2024-02-26 07:31 | DI.CT.S_ITS ---
PROCEDURE: CT ABDOMEN PELVIS WO/W CON INDICATIONS: Gross hematuria TECHNIQUE: Optional 5 mm thick noncontrast images acquired from the diaphragm to the symphysis pubis. After the administration of intravenous contrast, 5 mm thick images acquired from the diaphragm to the symphysis pubis after a 10-minute delay. 2 mm thick coronal and sagittal reformats were then performed of the kidneys and ureters. For radiation dose reduction, the following was used: automated exposure control, adjustment of mA and/or kV according to patient size. COMPARISON: None. FINDINGS: Image quality: Diagnostic Lower chest: Unremarkable lung bases. Normal heart size Liver: Unremarkable Gallbladder and biliary system: Unremarkable, nondilated biliary system Pancreas: No ductal dilation Spleen: Nonenlarged. Cluster of low-density lesions in the anterior upper spleen measuring up to 1.1 cm. Adrenals: No discrete nodules Kidneys: No obstructing calcified stone. No solid renal mass. 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 No suspicious ureter filling defects. Vessels and lymph nodes: No abdominal aortic aneurysm. No pathologic lymph nodes by size criteria. Atherosclerotic calcifications are seen. Bowel and peritoneum: No evidence of small bowel obstruction. No pathologic ascites. No drainable abscess. Colonic diverticula are seen. Body wall: Small fat containing umbilical hernia. Pelvis: There is impingement at the bladder neck from medial lobe hypertrophy at the prostate. No gross abnormality seen within the bladder Bones: There are degenerative changes. Mixed sclerosis is seen in the right parasymphyseal region, possibly degenerative. IMPRESSION: No significant upper tract disease by CT IVP. The lower tracts could be better evaluated with cystoscopy if clinically indicated Incidentally noted cluster of low-density lesions in the anterior spleen, which is overall nonenlarged. These are most commonly complicated cysts or hemangiomas. Consider follow-up with abdominal CT or MRI in 3-6 months (liver protocol). Other findings above. Dictated by: Iggy Gloria M.D. on 02/26/2024 at 14:38 Approved by: Iggy Gloria M.D. on 02/26/2024 at 14:44
== END ==
PROVIDERS: PCP Internal Medicine; Referring Provider Urology; Visit Provider Urology
DX: N50.89 Other specified disorders of the male genital organs (principal); N50.812 Left testicular pain; R31.0 Gross hematuria; R10.9 Unspecified abdominal pain; K57.90 Diverticulosis of intestine, part unspecified, without perforation or abscess without bleeding; K44.9 Diaphragmatic hernia without obstruction or gangrene; D73.89 Other diseases of spleen
CPT/HCPCS: 74178; 76870; 93975; Q9967